=== PATIENT | female | born 1965 | race Caucasian/White ===

== ENCOUNTER 2024-08-01 08:43 | Outpatient (AMB) | payer MEDICAID, SELFPAY ==
--- NOTE | 2024-08-01 09:05 | A.OFFVIS_ITS ---
Intake Visit Reasons: hematuria/HX Kidney Stones Intake Note: Patient is present for HEMATURIA/HX KIDNEY STONES Urology Medication:NONE Antibiotic Allergy:NONE Blood Thinner:NONE TODAY'S PVR:0ML'S Textbook Associate Required: No Allergies No Known Allergies Allergy (Verified 08/01/24 09:08) HPI Comments Details: Janna is a very pleasant female. She is a patient of Dr. Quiñones. She seen for the following urologic conditions - nephrolithiasis Nephrolithiasis Prior stone procedures in 1992 and 2011 Underwent ESWL with ineffectual breaking up of stone Has had recurrent blood with a single UTI Imaging reviewed today with 12 mm stone within right renal pelvis Discussed options for therapy Recommend ureteroscopy with laser lithotripsy and stent placement [facility] Medical History (Updated 08/01/24 @ 09:38 by John Edwards MD) Back pain Retinal tear of left eye Recurrent nephrolithiasis Hypothyroid Colon polyp History of kidney stones Hematuria Surgical History (Updated 07/29/24 @ 13:59 by MEGHAN Negrete) History of knee surgery History of eye surgery History of back surgery History of lithotripsy Review of Systems Const Denies chills and Denies fever(s) Card Reports no additional complaints and Denies syncope Resp Denies cough GI Denies abdominal pain and Denies heartburn Reports as per HPI and Denies change in libido Neuro Denies syncope Psych Denies change in libido Endo Denies change in libido Physical Exam Const General: cooperative, healthy appearing, comfortable and no acute distress Orientation/consciousness: patient oriented x3 HEENT Face and sinus: Yes normal facial exam Mouth: moist mucous membranes Neck Neck: Yes normal visual inspection, Yes full ROM and Yes trachea midline Chest Chest palpation & inspection: normal inspection of the chest Resp Effort & Inspection: normal respiratory effort, able to speak in complete sentences and no respiratory distress GI Inspection: Yes normal to inspection Back/Spine/Pelvis Cervical Spine: normal cervical lordosis Thoracic/Lumbar Spine: thoracic and lumbar spine normal to inspection Skin General skin exam: no rashes or lesions noted Neuro General: patient oriented x3, gait normal, tone normal and moves all extremities Extrem General: Yes normal to inspection and Yes capillary refill normal Office Procedures Post Void Residual Post Residual Void Post Void Residual (PVR): 0 13375-[id number] Void Residual by ultrasound Assessment & Plan Assessment & Plan (1) Recurrent nephrolithiasis: Code(s): N20.0 - Calculus of kidney Category: Medical Plan Ureteroscopy We discussed the nature of the decision and reasonable alternatives for performing ureteroscopy. Options such as medical therapy were discussed. Interventions include chemical dissolution, ESWL, ureteroscopy with laser lithotripsy and stent placement, PCNL. The relative uncertainties and benefits related to each alternate procedure were adequately discussed. General surgical risks including, but not limited to - pain, bleeding, infection, myocardial infarction, pulmonary embolus, deep vein thrombosis and cerebrovascular accident which may result in further hospita lization were discussed. Full disclosure of the procedure as well as all major risks, benefits and complications were discussed including but not limited to damage to the urethra, bladder and kidney infection, damage to the ureter, stent migration or malposition, scarring to the renal pelvis, remnant stone fragments, subsequent stone passage with need for secondary procedures. The overall secondary procedure rate is approximately 10-15%. The overall clearance rate is approximately 90-95%. Success of the procedure in the short-term does not necessarily guarantee that long-term success will be maintained. Suitable follow up will need to be maintained. The patient showed understanding of discussion and wishes to proceed with - cystoscopy, retrograde, ureteroscopy, possible lithotripsy/stone basketing and stent on the right side Orders: Orders AMB Urinalysis Automated Today Z13.9 - Encounter for screening, unspecified Patient Instructions: Imaging studies, laboratory and physical exam results were discussed and re viewed in detail. No major barriers to patient understanding were identified. An opportunity to ask questions regarding the treatment plan was provided. All questions were answered. The patient expressed understanding and agreement with the above treatment plan. The patient is aware they should contact our office by phone for worsening of their current condition or the appearance of new urologic symptoms. Compliance is encouraged with any medications and followup testing that is ordered. It is a privilege to participate in the urologic care of your patient. If you have any questions or concerns regarding treatment for the above conditions, or other urologic issues, please do not hesitate to contact me. The office telephone contact is [phone]. This note is constructed using voice recognition software. While every effort has been made to ensure accuracy financial administrative assistant errors may have been included. Yours sincerely, Dr John Edwards MD, [facility] - Urology Providers of Expert, Compassionate Care for the Genitourinary System Coding Level of Care Code New Pt Level 4 (04704) Diagnoses Recurrent nephrolithiasis N20.0 CPT Codes Post Residual Void - PVR CPT Code: 51372-[id number] Void Residual by ultrasound ([id number])
== END 2024-08-01 09:34 | disposition home or self-care (01) ==
PROVIDERS: PCP Internal Medicine; Visit Provider Urology
DX: Z13.9 Encounter for screening, unspecified (principal); N20.0 Calculus of kidney
CPT/HCPCS: 99204

== ENCOUNTER → 2024-08-01 08:43 | Outpatient (BNVA) | payer MEDICAID, SELFPAY | PROVIDERS: PCP Internal Medicine; Visit Provider Urology | DX: N20.0 Calculus of kidney (principal) | CPT/HCPCS: 51798; 81003; 99202 ==

== ENCOUNTER 2024-09-09 10:55 | Day surgery (SDC) | payer MEDICAID, SELFPAY ==
[2024-09-05 13:33] VITALS: BMI 26.0
--- NOTE | 2024-09-05 13:51 | P.CONAN_ITS ---
Documented by User: Rubina Richardson NP 09/05/24 13:53 HPI - Anesthesia Eval Consult details Narrative: 59yo F for Cystoscopy, Ureteroroscopy, Retro, Laser,with stent placement PMFSH Active Problems Active Problems: All Active Problems Recurrent nephrolithiasis (Acute) Past Medical History Medical History Back pain Retinal tear of left eye Recurrent nephrolithiasis Hypothyroid Colon polyp History of kidney stones Hematuria Surgical History Surgical History History of knee surgery History of eye surgery History of back surgery History of lithotripsy Social History Social History (Updated 09/05/24 @ 13:34 by Alivia Campbell RN) Are you a primary healthcare business analyst to a significant other at home: No Do you presently have visiting nurse or other home services: No Patient Tobacco Use Status: Never used Tobacco Use of substances other than those prescribed or required for medical reasons: No Have you been hit, kicked, punched, or otherwise hurt by someone within the past year? If so, by whom?: No Are you DNR?: No Advance Directives: No Advance Directives Information Provided: Yes Recently lost weight without trying: No Nutrition Risks: No Nutritional Risk Meds Allergies Allergy/AdvReac Type Severity Reaction Status Date / Time No Known Allergies Allergy Verified 09/09/24 10:59 Home Medications ?Medication ?Instructions ?Recorded ?Confirmed ?Last Taken ?Type levothyroxine 75 mcg tablet 75 mcg PO DAILY 07/29/24 09/05/24 Unknown History Exam Height,Weight and Vital Signs: Height 5 ft 5 in Weight 70.76 kg Assessment and Plan Assessment Anesthesia Assessment: Chart Reviewed Documented by User: Tamra Dos Santos MD 09/09/24 12:59 PMFSH Past Medical History Medical History Back pain Retinal tear of left eye Recurrent nephrolithiasis Hypothyroid Colon polyp History of kidney stones Hematuria Family History Family history of problems with anesthesia: No Surgical History Surgical History History of knee surgery History of eye surgery History of back surgery History of lithotripsy History of Problems with Anesthesia: No Social History Social History (Updated 09/05/24 @ 13:34 by Alivia Campbell RN) Are you a primary healthcare business analyst to a significant other at home: No Do you presently have visiting nurse or other home services: No Patient Tobacco Use Status: Never used Tobacco Use of substances other than those prescribed or required for medical reasons: No Have you been hit, kicked, punched, or otherwise hurt by someone within the past year? If so, by whom?: No Are you DNR?: No Advance Directives: No Advance Directives Information Provided: Yes Recently lost weight without trying: No Nutrition Risks: No Nutritional Risk Meds Allergies Allergy/AdvReac Type Severity Reaction Status Date / Time No Known Allergies Allergy Verified 09/09/24 10:59 Home Medications ?Medication ?Instructions ?Recorded ?Confirmed ?Last Taken ?Type levothyroxine 75 mcg tablet 75 mcg PO DAILY 07/29/24 09/05/24 Unknown History Exam Airway Mallampati Class: II (missing one) TM Dist: >3cm Neck ROM: Full Heart: rrr Lungs: cta Assessment and Plan Assessment Anesthesia Assessment: Anesthesia Plan Discussed Final Anesthetic Review Family History of Problems with Anesthesia: No History of Problems with Anesthesia: No NPO: No ASA Class: II Final Preanesthetic Review: No Changes in Pt Med Stat, Meds/Allgs Chart Reviewed and Consent Obtained/Reviewed Patient Risk: Low Procedure Risk: Low Anesthetic Plan Anesthetic Plan: GA Disposition: Standard PACU
[2024-09-09 10:59] VITALS: BMI 25.3
[2024-09-09] MEDS: Lactated Ringers 1,000 ML 100 ML IVCONT (11:11)
[2024-09-09 11:23] VITALS: BP 134/80; PULSE 85; RESP 18; TEMP 36.7; O2SAT 99
--- NOTE | 2024-09-09 13:16 | MHC.SHP ---
Pre-Procedural Eval Section A - 24 Hr Update-Section A only Date of Service: 09/09/24 The patient is an INPATIENT: No Changes since office visit: No Cold of Flu in the past 2 weeks, No New Medical Problems, No Changes in Medication and No Patient answered all questions The patient has been examined within 24 hours of the surgical procedure. The History & Physical has been completed within 30 days and I have reviewed it.: Yes Section B - Complete if H&P > 30 days Chief Complaint: Calculus of kidney Details of Present Illness: right renal stone Relevant Family History (Specify if Yes): No Relevant Social History: None Present Medications: see Short Stay Collaborative assessment Medical History: No relevant PMH History of Previous Operations: No relevant previous surgery Allergies: Allergies Allergy/AdvReac Type Severity Reaction Status Date / Time No Known Allergies Allergy Verified 09/09/24 10:59 Review of Systems Sugical H&P ROS: Negative: Constitution, Cardiovascular, Respiratory, Neurological, Psychiatric, Hem-Onc, Allergic/Immunologic, Gastrointestinal, Genitourinary, Musculoskeletal, Integumentary, Endocrine and Eyes/Ears/Nose/Throat Exam Surgical H&P Exam: Normal: HEENT, Normal: Heart, Normal: Lungs, Normal: Extremities, Normal: Abdomen, Normal: Skin and Normal: Neurological Plan Diagnosis/Plan: Unchanged (right ureteroscopy with laser lithotripsy) I have reviewed the history and physical and performed a pertinent physical examination on my patient. No changes have occurred unless specified. Time Spent With Patient Time: Total time managing care of this patient today ____ minutes.
[2024-09-09 14:25] VITALS: BP 117/61; PULSE 87; RESP 16; TEMP 36.1; O2SAT 100
[2024-09-09 14:30] VITALS: BP 123/65; PULSE 73; RESP 16; O2SAT 99
[2024-09-09 14:35] VITALS: BP 126/62; PULSE 75; RESP 16; O2SAT 99
[2024-09-09 14:40] VITALS: BP 116/63; PULSE 85; RESP 18; O2SAT 100
[2024-09-09 14:55] VITALS: BP 124/61; PULSE 76; RESP 18; TEMP 36.2; O2SAT 100
--- NOTE | 2024-09-09 14:56 | P.OP_ITS ---
Operative Note Operative Note Date of Service: 09/09/24 Narrative: PreOperative Diagnosis: Right renal stone Post Operative Diagnosis: 1 - right renal stone 2 - multifocal superficial bladder cancer Procedure: - cystoscopy, right retrograde - right dilatation of ureteric orifice under fluoroscopy - right ureteroscopy, laser lithotripsy, stone basketing - right stent placement - TURBT multifocal superficial bladder cancer (large) Surgeon: Dr John Edwards Anesthesia: General Indications for procedure: 12 mm right renal stone on CT imaging. To prior procedures a number of years ago ESWL. Procedure: After informed consent was verified patient was brought to the operating placed in supine position. Anesthesia was administered per protocol. Patient was placed in modified dorsal lithotomy position and prepped and draped in a sterile fashion. Safety pause time-out and side of surgery confirmed. Antibiotics confirmed. A 22 Montenegrin cystoscope was inserted per urethra. The urethra and bladder were normal in their entirety. Both ureteric orifices were in normal position. There was a medium-sized superficial bladder cancer sitting adjacent to the right ureteric orifice. There were at least 2 satellite lesions in the near vicinity. There was a 3rd satellite lesion on the anterior aspect of the bladder dome. Satellite lesions were proximally 1 cm in diameter. Primary lesion was approximately 4 cm in greatest diameter with a 1 cm base. The right ureteric orifice was cannulated and a retrograde examination was performed. No filling defects seen within kidney. A Sensor guidewire was placed up to the level of the renal pelvis under fluoroscopy. The rigid cystoscope was removed and the inner cannula of ureteric access sheath was used under fluoroscopy to dilate the ureteric orifice. The ureteric access sheath was placed and the inner cannula with access wire removed. The digital flexible ureteral scope was placed. Stone was encountered in an mid pole calyx. Using a small 272 nm holmium laser fiber the stone was broken into small pieces. Using a 1.9 Montenegrin ZeroTip basket stone fragments were removed. At the completion of the stone procedure a Sensor wire was placed back into the renal pelvis. A 6 Mont[place]grin by 24 cm double-J stent was placed into the renal pelvis and bladder under a combination of fluoroscopy and direct visualization. The symphisis pubis was used as a radiographic marker to release the stent and good coil was seen within the bladder confirming position. Proximal positioning of the stent was confirmed using fluoroscopy. Attention was then directed to the multiple bladder tumors. A 26 Montenegrin continuous flow resectoscope was inserted per urethra. The visual obturator was used in order to minimize potential for urethral damage. The satellite lesion at the posterior wall was removed 1st. This was followed by another satellite lesion that was located proximally 1 cm distal from the ureteric orifice opening. The primary tumor was located approximately 2 cm proximal to the right ureteric orifice. This was resected in a 1 cm rim was fulgurated. Proximally 4 cm in diameter at widest point. This narrowed to a base proximally 1.5 cm in diameter. A 3rd satellite lesion was found during cystoscopy on the anterior bladder wall. This is a proximally 2 cm in diameter. Narrow band imaging was used and no other areas of suspicion were seen. The bladder was emptied and specimen was obtained. At the completion of the procedure the bladder was irrigated. The cystoscope was removed. The bladder was emptied. The patient tolerated the procedure well and was extubated in the operating room, and transferred in stable condition to the recovery area. Pathology: 1. Right renal stone fragments 2. TURBT specimen superficial bladder cancer Drains: Right renal stent
[2024-09-18 00:24] LABS: Stone Source RIGHT RENAL STONE
== END 2024-09-09 15:19 | disposition home or self-care (01) ==
PROVIDERS: PCP Internal Medicine; Visit Provider Urology
PROC: (CPT 52356; principal; 2024-09-09 14:00)
DX: N20.0 Calculus of kidney (principal); Z87.442 Personal history of urinary calculi; R31.9 Hematuria, unspecified; C67.9 Malignant neoplasm of bladder, unspecified; M54.9 Dorsalgia, unspecified; E03.9 Hypothyroidism, unspecified; Z79.1 Long term (current) use of non-steroidal anti-inflammatories (NSAID); Z79.899 Other long term (current) drug therapy; Z98.890 Other specified postprocedural states
CPT/HCPCS: 52356; 52235; 82365; 88300; 88307; C1758; C1769; C2617; J0131; J1100; J1956; J2003; J2250; J2405; J2704; J3010; Q9967

== ENCOUNTER → 2024-09-09 10:55 | Outpatient (BNV) | payer MEDICAID, SELFPAY | PROVIDERS: PCP Internal Medicine; Visit Provider Urology | DX: C67.8 Malignant neoplasm of overlapping sites of bladder (principal); N20.0 Calculus of kidney | CPT/HCPCS: 52240; 52356; 74420 ==

== ENCOUNTER 2024-09-23 09:48 | Outpatient (AMB) | payer MEDICAID, SELFPAY ==
--- NOTE | 2024-09-23 10:01 | A.OFFVIS_ITS ---
Intake Visit Reasons: stent removal Intake Note: Patient presents today for Cystoscopy/stent removal Urology Medication: none Antibiotic Allergy:none Blood Thinner:none * URO- G Disposable Cystoscope Lot: [id number] Exp: 01/24/27 Floorworker Lasting Required: No Accompanied by: Unknown Allergies No Known Allergies Allergy (Verified 09/23/24 22:21) Medication List - Last Reconciled 09/23/24 by ANSON Jones levothyroxine 75 mcg PO DAILY HPI Comments Details: Janna is a very pleasant 59-year-old female patient of Dr. Quiñones was accompanied by her friend at today's office visit. She has a past medical history of back pain, retinal tear of the left eye, recurrent nephrolithiasis, and hypothyroidism. She presents to the office today for a cystoscopy with right-sided ureteral stent removal. Of note, patient underwent cystoscopy, right retrograde, right dilatation of ureteric orifice under fluoroscopy, right ureteroscopy, laser lithotripsy, stone basketing, and right-sided ureteral stent placement as well as a TURBT multifocal superficial bladder cancer (large) with Dr. Edwards 09/09/24. In office cystoscopy with right ureteral stent removal was performed. Patient tolerated procedure well. We discussed at length pathology findings that noted low-grade papillary urethral carcinoma, noninvasive. Focal muscle bundle suggestive of but not definitive of muscularis propria. We also discussed stone composition/analysis calcium oxalate dehydrate 25%, calcium oxalate monohydrate 50%, and carbonate apatite 25%. I have discussed plan of care with Dr. Edwards as well as with the patient to include repeat cysto TURBT within the next 4-[address] with contrast for further assessment evaluation as patient with previous CT 07/11 however this was without contrast to assess nephrolithiasis. She denies any previous history of nicotine dependence however does report a previous history of workplace chemical exposure. She discusses her longstanding history of nephrolithiasis in the past requiring two prior ESWL many years ago. She does report noting episodes of urinary urgency and frequency with stent in place however she denies having had any previous issues with her urination. In office urinalysis results reviewed with the patient today. All questions were answered. She otherwise offers no other issues or concerns at this time. [facility] Medical History Back pain Retinal tear of left eye Recurrent nephrolithiasis Hypothyroid Colon polyp History of kidney stones Hematuria Surgical History History of knee surgery History of eye surgery History of back surgery History of lithotripsy Social History Are you a primary day care attendant to a significant other at home: No Do you presently have visiting nurse or other home services: No Patient Tobacco Use Status: Never used Tobacco Review of Systems Const All systems reviewed & are unremarkable except as noted in HPI and below Physical Exam Const General: cooperative, comfortable, no acute distress, well developed, alert and awake Orientation/consciousness: patient oriented x3 HEENT Head: Yes normal to inspection, Yes normocephalic and Yes atraumatic Ears: hearing grossly normal bilaterally Eyes General: appearance normal, both eyes and all related structures Neck Neck: Yes normal visual inspection and Yes trachea midline Chest Chest palpation & inspection: normal inspection of the chest Resp Effort & Inspection: normal respiratory effort and able to speak in complete sentences Cardio Rate: regular rate GI Inspection: Yes normal to inspection General: Yes no CVA tenderness External Female Exam: normal external appearance Speculum Exam - Vagina: normal appearance of the vagina Back/Spine/Pelvis Back: no CVA tenderness Skin General skin exam: no rashes or lesions noted Neuro General: patient oriented x3 Extrem General: Yes normal to inspection Psych Appearance: grossly normal and well kempt Mental Status: mental status grossly normal Speech and movement: Normal speech and movement present and Clear speech present Affect: normal affect Attitude: cooperative Thought process: Normal thought process present Thought content: Normal thought content present Insight: Fair insight present (Psych) Judgement: Fair judgement present (Psych) Office Procedures Cystoscopy Consent Discussed risk and benefit or proposed procedure with the patient. Information consent for procedure given to the patient. Discussed technical aspects, risks, benefits and alternatives in full. Addressed all of the patient's questions and concerns regarding the procedure. The patient demonstrated knowledge and understanding. They wish to proceed with this procedure. Preparation The patient was prepped in the usual manner. A cnc set up operator was present and in the room. Genitalia was prepped with betadine solution in a sterile manner. Lidocaine Jelly 2% was placed into the urethra and 16Fr flexible cystoscope was inserted into the meatus after adequate lubrication. Procedure A well lubricated 16 Bermudian cystoscope was placed No abnormality noted of urethra during placement Indwelling stent seen within bladder emerging from right ureteric orifices The stent was grasped with a 3 prong grasper and removed without difficulty Patient tolerated procedure well. [id number] with stent removal DISPOSABLE SCOPE URO-G FLEXIBLE SCOPE Procedure code (CPT) selection complete Office Meds lidocaine HCl 2 % mucosal jelly in applicator Performing Provider: ANSON Jones [facility] Administered by: ANSON Jones on 09/23/24 22:31 Dose Route Admin Location Dispensed Lot Number Expiration Date [facility] Chef Manager 10 mL intra-urethral 10 mL Comments: 100mg of macrobid PO times 1 given 500 mg of naproxen p.o. x1 given Results AMB Urinalysis, Automated UA Leukoctes 125 Jeffrey/uL Last Edit by Kvng Pacheco on 09/23/24 11:46 UA Nitrite Last Edit by Kvng Pacheco on 09/23/24 11:46 UA Urobilinogen 0.2 mg/dL Last Edit by Kvng Pacheco on 09/23/24 11:46 UA Protein 300 mg/dL Last Edit by Kvng Pacheco on 09/23/24 11:46 UA pH 6.0 Last Edit by Kvng Pacheco on 09/23/24 11:46 UA Blood 200 Terrance/uL Last Edit by Kvng Pacheco on 09/23/24 11:46 UA Specific [place]ham 1.030 Last Edit by Kvng Pacheco on 09/23/24 11:46 UA Ketone Last Edit by Kvng Pacheco on 09/23/24 11:46 UA Bilirubin 1 mg/dL Last Edit by Kvng Pacheco on 09/23/24 11:46 UA Glucose 0 mg/dL Last Edit by Kvng Pacheco on 09/23/24 11:46 Results Reviewed Results Reviewed: Laboratory Last Values Urine pH (Auto) 6.0 09/23/24 11:45 Specific [place]ham (Auto) 1.030 09/23/24 11:45 Urine Protein (Auto) 300 mg/dL 09/23/24 11:45 Glucose (UA)(Auto) 0 mg/dL 09/23/24 11:45 Urine Blood (Auto) 200 Terrance/uL 09/23/24 11:45 Urine Bilirubin (Auto) 1 mg/dL 09/23/24 11:45 Urine Urobilinogen (Auto) 0.2 mg/dL 09/23/24 11:45 Leukocyte Esterase (Auto) 125 Jeffrey/uL 09/23/24 11:45 Assessment & Plan Assessment & Plan (1) Bladder cancer: Code(s): C67.9 - Malignant neoplasm of bladder, unspecified Category: Medical (2) Recurrent nephrolithiasis: Code(s): N20.0 - Calculus of kidney Category: Medical Plan: Risks, benefits and alternatives to therapy were discussed. These include but are not limited to infection, bleeding, damage to local organs and tissues, need for further interventions. ? Anesthetic risks regarding cardiac arrhythmia, blood clots, and potential mortality were discussed. The patient understands the typical recovery time and the outpatient nature of the procedure. After consideration of these risks the patient gives full informed consent and they wish to move ahead with the procedure. Plan In office urinalysis results reviewed with the patient today; as noted above. In office cystoscopy with right ureteral stent removal was performed patient tolerated procedure well. Recent pathology results as well as stone composition results reviewed with the patient today; as noted above. We discussed obtaining CT for further assessment evaluation. BUN and creatinine ordered for imaging. We discussed repeat cysto TURBT with Dr. Edwards in the next 4-6 weeks. Discussed, educated, and stressed the importance of adequate hydration relation to nephrolithiasis as well as overall health and well-being. All questions were answered. Follow-up with Dr. Edwards; or sooner with any issues, concerns, and or questions. Orders: Orders CT abdomen pelvis wo/w IV con 09/23/24 C67.9 - Malignant neoplasm of bladder, unspecified Creatinine 09/23/24 C67.9 - Malignant neoplasm of bladder, unspecified Blood Urea Nitrogen 09/23/24 C67.9 - Malignant neoplasm of bladder, unspecified AMB Urinalysis Automated 09/23/24 Z13.9 - Encounter for screening, unspecified AMB Cystoscopy 09/23/24 C67.9 - Malignant neoplasm of bladder, unspecified, N20.0 - Calculus of kidney Medications: New lidocaine HCl 2% 10 mL intra-urethral ONCE 10 mL 0RF C67.9 - Malignant neoplasm of bladder, unspecified, N20.0 - Calculus of kidney Patient Instructions: The patient had an opportunity to ask questions regarding the treatment plan. All questions were answered. Physical exam, labs, and imaging were discussed and reviewed in detail. As well as risks, benefits, and discussion of treatment choices. No major barriers to understanding were identified. The patient expressed understanding and agreement with the above treatment plan. The patient was made aware they should contact our office by phone for worsening of their current condition, the appearance of new symptoms, or with any questions or concerns. Compliance is encouraged with any medications and follow up testing that is ordered. It is a privilege to be allowed the opportunity to participate in? your urological care.? Again, if you have any questions or concerns If you have any questions or concerns please do not hesitate to contact me. The office is [phone]. This note is constructed using voice recognition software. While every effort has been made to ensure accuracy public welfare worker errors may have been included. Yours sincerely, ANSON Jones Coding Level of Care Code Est Pt Level 4 (65567) Complex EM visit Add On G2211 Diagnoses Bladder cancer C67.9 Recurrent nephrolithiasis N20.0 CPT Codes Cystoscopy - CPT: 67383-[id number] with stent removal ([id number]) Time Spent (min) 40
== END 2024-09-23 11:15 | disposition home or self-care (01) ==
PROVIDERS: PCP Internal Medicine; Visit Provider Nurse Practitioner Family
DX: C67.9 Malignant neoplasm of bladder, unspecified (principal); N20.0 Calculus of kidney
CPT/HCPCS: 52310; 99214; G2211

== ENCOUNTER 2024-10-21 13:00 | Day surgery (SDC) | payer MEDICAID, SELFPAY ==
[2024-10-17 10:32] VITALS: BMI 25.3
[2024-10-21 13:14] VITALS: BMI 24.6
[2024-10-21 13:16] VITALS: BP 107/66; PULSE 83; RESP 16; TEMP 36.8; O2SAT 96
--- NOTE | 2024-10-21 13:56 | P.CONAN_ITS ---
Documented by User: Lora Hunter MD 10/21/24 14:00 HPI - Anesthesia Eval Consult details Narrative: 59yo female patient for TURBT PMFSH Active Problems Active Problems: All Active Problems Bladder cancer (Acute) Recurrent nephrolithiasis (Acute) Past Medical History Medical History Back pain Retinal tear of left eye Recurrent nephrolithiasis Hypothyroid Colon polyp History of kidney stones Hematuria Family History Family history of problems with anesthesia: No Surgical History Surgical History Hx of cystoscopy History of knee surgery History of eye surgery History of back surgery History of lithotripsy History of Problems with Anesthesia: No Social History Social History Are you a primary care transition manager to a significant other at home: No Do you presently have visiting nurse or other home services: No Patient Tobacco Use Status: Never used Tobacco Use of substances other than those prescribed or required for medical reasons: Yes Substance Use Type Other:: CBD gummies for sleep, last used 10/20/24 Substance Use Frequency: Weekly Are you DNR?: No Advance Directives: No Advance Directives Information Provided: Yes Meds Allergies Allergy/AdvReac Type Severity Reaction Status Date / Time No Known Allergies Allergy Verified 10/21/24 13:11 Home Medications ?Medication ?Instructions ?Recorded ?Confirmed ?Last Taken ?Type levothyroxine 75 mcg tablet 75 mcg PO DAILY 07/29/24 10/17/24 10/21/24 History Exam Height,Weight and Vital Signs: Height 5 ft 5 in Weight 67.132 kg Last Vital Signs Temp 98.3 F 10/21/24 13:16 Pulse 83 10/21/24 13:16 Resp 16 10/21/24 13:16 BP 107/66 10/21/24 13:16 Pulse Ox 96 10/21/24 13:16 O2 Del Method Room Air 10/21/24 13:16 Assessment and Plan Final Anesthetic Review Family History of Problems with Anesthesia: No History of Problems with Anesthesia: No Documented by User: Tamra Dos Santos MD 10/21/24 14:12 PMFSH Past Medical History Medical History Back pain Retinal tear of left eye Recurrent nephrolithiasis Hypothyroid Colon polyp History of kidney stones Hematuria Surgical History Surgical History Hx of cystoscopy History of knee surgery History of eye surgery History of back surgery History of lithotripsy Social History Social History Are you a primary care transition manager to a significant other at home: No Do you presently have visiting nurse or other home services: No Patient Tobacco Use Status: Never used Tobacco Use of substances other than those prescribed or required for medical reasons: Yes Substance Use Type Other:: CBD gummies for sleep, last used 10/20/24 Substance Use Frequency: Weekly Are you DNR?: No Advance Directives: No Advance Directives Information Provided: Yes Meds Allergies Allergy/AdvReac Type Severity Reaction Status Date / Time No Known Allergies Allergy Verified 10/21/24 13:11 Home Medications ?Medication ?Instructions ?Recorded ?Confirmed ?Last Taken ?Type levothyroxine 75 mcg tablet 75 mcg PO DAILY 07/29/24 10/17/24 10/21/24 History Exam Airway Mallampati Class: II (missing one front tooth) TM Dist: >3cm Neck ROM: Full Heart: rrr Lungs: cta Assessment and Plan Assessment Anesthesia Assessment: Anesthesia Plan Discussed and Chart Reviewed Final Anesthetic Review NPO: Yes ASA Class: II Final Preanesthetic Review: No Changes in Pt Med Stat, Meds/Allgs Chart Reviewed and Consent Obtained/Reviewed Patient Risk: Low Procedure Risk: Low Anesthetic Plan Anesthetic Plan: GA Disposition: Standard PACU
--- OUTSIDE RECORDS SUMMARY | 2024-10-21 14:18 | XMS_ITS | Clinical Summary ---
Author Organization [facility] Address [address] [place] [address] Care Team Providers Care Java Technical Manager Name Role Phone Sofía Sandoval MD Primary Care Provider [phone] Sofía Sandoval MD Unavailable [phone] Immunizations Name Administration Dates Next Due Tdap 11/21/2007 Social History Tobacco Use Types Packs/Day Years Used Date Smoking Tobacco: Never Assessed Comments Unknown Sex and Gender Information Value Date Recorded Sex Assigned at Not on file Legal Sex Female 10:30 PM EDT Gender Identity Not on file Sexual Orientation Not on file Plan of Treatment Health Maintenance Due Date Last Done Comments Hepatitis C Screening 1964 Pap Smear 1980 Mammogram/Breast Imaging 2004 Pneumococcal 50+ years (1 of 1 - PCV) 02/21/2014 Zoster (Shingrix) (1 of 2) 02/21/2014 DTaP/Tdap/Td (2 - Td or Tdap) 11/20/2017 11/21/2007 COVID-19 Vaccine ( - 2023-2 5 season) 2024 Influenza (#1) 2024 RSV (1 - 1-dose 75+ series) 02/21/2039 HPV Vaccine Aged Out No longer eligi ble based on patient's age to complete this topic Hep A Aged Out No longer eligi ble based on patient's age to complete this topic Hep B Aged Out No longer eligi ble based on patient's age to complete this topic Hib Aged Out No longer eligi ble based on patient's age to complete this topic Meningococcal ACWY Aged Out No longer eligible based on patient's age to complete this topic Zoster (Zostavax) Discontinued Care Teams Java Technical Manager Relationship Specialty Start Date End Date Sofía Sandoval MD [address] [place] [address] PCP - General 04/24/23 Sofía Sandoval MD [address] [place] [id number] PCP - Backup PCP Family Medicine 10/18/23
--- NOTE | 2024-10-21 14:29 | P.HPSUR_ITS ---
Pre-Procedural Eval Section A - 24 Hr Update-Section A only Date of Service: 10/21/24 The patient is an INPATIENT: No Changes since office visit: No Cold of Flu in the past 2 weeks, No New Medical Problems, No Changes in Medication and No Patient answered all questions The patient has been examined within 24 hours of the surgical procedure. The History & Physical has been completed within 30 days and I have reviewed it.: Yes Section B - Complete if H&P > 30 days Chief Complaint: Malignant neoplasm of bladder, unspecified Details of Present Illness: Underwent prior stone procedure with TURBT. Was f ound to have multiple 1 cm superficial bladder cancer in bladder. Here for repeat TURBT after initial. We will be planning on post immunotherapy. Relevant Family History (Specify if Yes): No Relevant Social History: None Present Medications: see Short Stay Collaborative assessment Medical History: No relevant PMH History of Previous Operations: Relevant previous surgery/procedure and date(s) Allergies: Allergies Allergy/AdvReac Type Severity Reaction Status Date / Time No Known Allergies Allergy Verified 10/21/24 13:11 Review of Systems Sugical H&P ROS: Negative: Constitution, Cardiovascular, Respiratory, Neurological, Psychiatric, Hem-Onc, Allergic/Immunologic, Gastrointestinal, Genitourinary, Musculoskeletal, Integumentary, Endocrine and Eyes/E ars/Nose/Throat Exam Surgical H&P Exam: Normal: HEENT, Normal: Heart, Normal: Lungs, Normal: Extremities, Normal: Abdomen, Normal: Skin and Normal: Neurological Plan Diagnosis/Plan: Unchanged (TURBT redo) I have reviewed the history and physical and performed a pertinent physical examination on my patient. No changes have occurred unless specified. Time Spent With Patient Time: Total time managing care of this patient today ____ minutes.
[2024-10-21 15:11] VITALS: BP 101/58; PULSE 72; RESP 16; TEMP 36.8; O2SAT 98
[2024-10-21 15:16] VITALS: BP 101/59; PULSE 74; RESP 16; O2SAT 97
[2024-10-21 15:21] VITALS: BP 97/56; PULSE 73; RESP 14; O2SAT 98
[2024-10-21 15:26] VITALS: BP 100/61; PULSE 83; RESP 16; O2SAT 100
--- NOTE | 2024-10-21 15:27 | W.PM.OPN ---
Operative Note Operative Note Date of Service: 10/21/24 Narrative: PreOperative Diagnosis: bladder cancer Post Operative Diagnosis: bladder cancer - #1)Tumor size 2 cm, location Posterior Wall, #2) Tumor size 0.5cm, location right side wall Procedure: TURBT Surgeon: Dr John Edwards Anesthesia: general Indications for procedure: Had been seen with multiple bladder tumors at time of stone procedure. Here for 6 week post resection reassessment. Procedure: After informed consent was verified the patient was brought to the operating room and placed in a supine position. Anesthesia was administered per protocol. The patient was placed in a modified dorsal lithotomy position and prepped and draped in a sterile fashion. Safety pause time-out was performed. Antibiotics were confirmed. A 26 Slovenian continuous flow resectoscope was inserted per urethra. The visual obturator was used in order to minimize potential for urethral damage. 2 cm lesion seen on posterior wall. This was initial lesion to be resected and fulgurated. Fulguration performed at base of healing lesion on inferior aspect of posterior wall. Narrow band imaging light used. Bladder examined in its entirety. Small lesion seen on right upper sidewall which was fulgurated. At the completion of the procedure the bladder was irrigated. The cystoscope was removed. The patient tolerated the procedure well. They were extubated in the operating room and transferred in stable condition to the recovery area. Pathology: 2 cm tumor Drains: []
[2024-10-21 15:41] VITALS: BP 117/63; PULSE 76; RESP 18; TEMP 36.3; O2SAT 100
[2024-10-21] MEDS: Phenazopyridine HCL 100 MG TABLET PO (15:46)
== END 2024-10-21 16:10 | disposition home or self-care (01) ==
PROVIDERS: PCP Internal Medicine; Visit Provider Urology
PROC: 0TBB8ZZ Excision of Bladder, Via Natural or Artificial Opening Endoscopic (ICD-10-PCS; CPT 52234; principal; 2024-10-21 14:50)
DX: C67.9 Malignant neoplasm of bladder, unspecified (principal); C67.4 Malignant neoplasm of posterior wall of bladder; Z87.442 Personal history of urinary calculi; E03.9 Hypothyroidism, unspecified; Z79.899 Other long term (current) drug therapy; Z98.890 Other specified postprocedural states
CPT/HCPCS: 52234; J0690; J1100; J2003; J2250; J2371; J2405; J2704; J3010

== ENCOUNTER → 2024-10-21 13:00 | Outpatient (BNV) | payer MEDICAID, SELFPAY | PROVIDERS: PCP Internal Medicine; Visit Provider Urology | DX: C67.8 Malignant neoplasm of overlapping sites of bladder (principal) | CPT/HCPCS: 52235 ==

== ENCOUNTER 2024-11-02 10:12 | Outpatient (REF) | payer MEDICAID, SELFPAY ==
--- OUTSIDE RECORDS SUMMARY | 2024-11-02 10:14 | XMS_ITS | Clinical Summary ---
Author Organization [facility] Address [address] [place] [address] Care Team Providers Care Retail Merchandising Coordinator Name Role Phone Sofía Sandoval MD Primary Care Provider [phone] Sofía Sandoval MD Unavailable [phone] Immunizations Name Administration Dates Next Due Tdap [...] this topic Zoster (Zostavax) Discontinued Care Teams Retail Merchandising Coordinator Relationship Specialty Start Date End Date Sofía Sandoval MD [address] [place] [address] PCP - General 04/24/23 Sofía Sandoval MD [address] [place] [id number] PCP - Backup PCP Family Medicine 10/18/23
[2024-11-02 11:04] LABS: Blood Urea Nitrogen 14 mg/dL (9-16); Estimated Glomerular Filt Rate > 60
== END 2024-11-02 10:13 | disposition home or self-care (01) ==
LOC: HO.LAB 10:12
PROVIDERS: PCP Internal Medicine; Visit Provider Nurse Practitioner Family
DX: C67.9 Malignant neoplasm of bladder, unspecified (principal)
CPT/HCPCS: 36415; 82565; 84520

== ENCOUNTER 2024-11-08 15:10 | Outpatient (REF) | payer MEDICAID, SELFPAY ==
[2024-11-08 17:10] LABS: Urine Cytology See Pathology rpt
== END 2024-11-08 15:11 | disposition home or self-care (01) ==
LOC: HO.LNP 15:10
PROVIDERS: Visit Provider Urology
DX: C67.9 Malignant neoplasm of bladder, unspecified (principal); R30.0 Dysuria
CPT/HCPCS: 87086; 88112

== ENCOUNTER 2024-11-08 15:10 | Outpatient (AMB) | payer MEDICAID, SELFPAY ==
--- OUTSIDE RECORDS SUMMARY | 2024-11-08 15:16 | XMS_ITS | Clinical Summary ---
Author Organization [facility] Address [address] [place] [address] Care Team Providers Care It Service Continuity Supervisor Name Role Phone Sofía Sandoval MD Primary Care Provider [phone] Sofía Sandoval MD Unavailable [phone] Immunizations Name Administration Dates Next Due Tdap [...] this topic Zoster (Zostavax) Discontinued Care Teams It Service Continuity Supervisor Relationship Specialty Start Date End Date Sofía Sandoval MD [address] [place] [address] PCP - General 04/24/23 Sofía Sandoval MD [address] [place] [id number] PCP - Backup PCP Family Medicine 10/18/23
--- NOTE | 2024-11-08 15:19 | A.OFFVIS_ITS ---
Intake Visit Reasons: TURBT- follow up Intake Note: Pt presents to office for TURBT follow up Allergies No Known Allergies Allergy (Verified 11/08/24 15:21) HPI Comments Details: Janna is a very pleasant female. She is a patient of Dr. Quiñones. She seen for the following urologic conditions - nephrolithiasis - low-grade superficial bladder cancer Doing well postprocedure Question of UTI Will treat for 3 day Recommend 6 week induction mitomycin-C with cytarabine given multifocal nature of disease Would follow-up with office cystoscopy and three-month Low-grade superficial bladder cancer Incidental finding at time of ureteroscopy Procedures - 09/10 TURBT multifocal superficial low-grade T1 - 11/11 repeat TURBT with 2 solitary lesion seen under NBI Nephrolithiasis Prior stone procedures in 1992 and 2011 Underwent ESWL with ineffectual breaking up of stone Has had recurrent blood with a single UTI Intervention - 09/10 right ureteroscopy with ESWL Stone composition - 09/10 - calcium oxalate monohydrate 50%, dihydrate 25%, carbonate apatite 25% PFSH Medical History Back pain Retinal tear of left eye Recurrent nephrolithiasis Hypothyroid Colon polyp History of kidney stones Hematuria Surgical History Hx of cystoscopy History of knee surgery History of eye surgery History of back surgery History of lithotripsy Social History Are you a primary childcare administrator to a significant other at home: No Do you presently have visiting nurse or other home services: No Patient Tobacco Use Status: Never used Tobacco Review of Systems Const Denies chills and Denies fever(s) Card Reports no additional complaints and Denies syncope Resp Denies cough GI Denies abdominal pain and Denies heartburn Reports as per HPI and Denies change in libido Neuro Denies syncope Psych Denies change in libido Endo Denies change in libido Physical Exam Const General: cooperative, healthy appearing, comfortable and no acute distress Orientation/consciousness: patient oriented x3 HEENT Face and sinus: Yes normal facial exam Mouth: moist mucous membranes Neck Neck: Yes normal visual inspection, Yes full ROM and Yes trachea midline Chest Chest palpation & inspection: normal inspection of the chest Resp Effort & Inspection: normal respiratory effort, able to speak in complete sentences and no respiratory distress GI Inspection: Yes normal to inspection Back/Spine/Pelvis Cervical Spine: normal cervical lordosis Thoracic/Lumbar Spine: thoracic and lumbar spine normal to inspection Skin General skin exam: no rashes or lesions noted Neuro General: patient oriented x3, gait normal, tone normal and moves all extremities Extrem General: Yes normal to inspection and Yes capillary refill normal Results AMB Urinalysis, Automated UA Leukoctes 15 Jeffrey/uL Last Edit by Suzi Cody on 11/08/24 15:32 UA Nitrite Negative Last Edit by Suzi Cody on 11/08/24 15:32 UA Urobilinogen 0.2 mg/dL Last Edit by Suzi Cody on 11/08/24 15:32 UA Protein 0 mg/dL Last Edit by Suzi Cody on 11/08/24 15:32 UA pH 6.0 Last Edit by Suzi Cody on 11/08/24 15:32 UA Blood 80 Terrance/uL Last Edit by Suzi Cody on 11/08/24 15:32 UA Specific [place] 1.015 Last Edit by Suzi Cody on 11/08/24 15:32 UA Ketone Negative Last Edit by Suzi Cody on 11/08/24 15:32 UA Bilirubin 0 mg/dL Last Edit by Suzi Cody on 11/08/24 15:32 UA Glucose 0 mg/dL Last Edit by Suzi Cody on 11/08/24 15:32 Results Reviewed Results Reviewed: Laboratory Last Values Urine pH (Auto) 6.0 11/08/24 15:26 Specific [place] (Auto) 1.015 11/08/24 15:26 Urine Protein (Auto) 0 mg/dL 11/08/24 15:26 Glucose (UA)(Auto) 0 mg/dL 11/08/24 15:26 Urine Ketones (Auto) Negative 11/08/24 15:26 Urine Blood (Auto) 80 Terrance/uL 11/08/24 15:26 Urine Nitrite (Auto) Negative 11/08/24 15:26 Urine Bilirubin (Auto) 0 mg/dL 11/08/24 15:26 Urine Urobilinogen (Auto) 0.2 mg/dL 11/08/24 15:26 Leukocyte Esterase (Auto) 15 Jeffrey/uL 11/08/24 15:26 Assessment & Plan Assessment & Plan (1) Complicated urinary tract infection: Code(s): N39.0 - Urinary tract infection, site not specified Category: Medical (2) Bladder cancer: Comment: Multifocal low-grade T1 disease Code(s): C67.9 - Malignant neoplasm of bladder, unspecified Category: Medical Plan Bladder immunotherapy Bladder immuno/chemotherapy was discussed today. These medications are used to create an immune reaction against bladder cancer. The intention is to destroy any tumor cells left on the bladder surface. Since BCG and gemcitabine involved immunostimulation they are not indicated in situations where there is immune weakness. Medications are placed directly into the bladder. It should be held for one to 2 hours. The toilet should be disinfected with a cap full of household bleach prior to urination. Side effects from BCG and gemcitabine generally include mucosa-related changes such as urinary urgency and/or frequency, and hematuria BCG may also invoke an infection type response. An elevated temperature may be indicative of more serious issues and should be reported to the Dr. The intention with bladder immunotherapy is to reduce the frequency of bladder cancer recurrence by 50%. Availability of BCG is highly variable. There is a single manufacture who has had difficulty with quality control industrial engineer since 2016. Multiple protocols are available - mitomycin-C for alkalinization - 40mg/200mg in 40cc NSal - EAU 2020: A Randomized Clinical Trial of Intravesical Instillation of Mitomycin-C and Combination of Mitomycin-C and Cytarabine (Willa-C) in Non-Muscle Invasive Bladder Cancer - Wesley Zamorano - Combination Gemcitabine/Docetaxel - 1gm/40mg in 100cc NSal 60 min (Intravesical gemcitabine and docetaxel in the treatment of BCG-na?ve non?muscle invasive urothelial carcinoma of the bladder: Updates from a phase 2 trial. Crossref DOI link:? https://doi.org/10.1200/JCO.2023.41.6_suppl.507 ) Will undergo - mitomycin-C with cytarabine 6 week induction Orders: Orders Urine Culture Today R30.0 - Dysuria AMB Urinalysis Automated Today C67.9 - Malignant neoplasm of bladder, unspecified Urine Cytology Today C67.9 - Malignant neoplasm of bladder, unspecified Medications: New sulfamethoxazole-trimethoprim 800-160 mg (Bactrim DS) 1 tab PO BID 5 days 10 tabs 0RF N39.0 - Urinary tract infection, site not specified Patient Instructions: This note is constructed using voice recognition software. While every effort has been made to ensure accuracy service restorer emergency errors may have been included. Imaging studies, laboratory and physical exam results were discussed and reviewed in detail. No major barriers to patient understanding were identified. An opportunity to ask questions regarding the treatment plan was provided. All questions were answered. The patient expressed understanding and agreement with the above treatment plan. The patient is aware they should contact our office by phone for worsening of their current condition or the appearance of new urologic symptoms. Compliance is encouraged with any medications and followup testing that is ordered. It is a privilege to participate in the urologic care of your patient. If you have any questions or concerns regarding treatment for the above conditions, or other urologic issues, please do not hesitate to contact me. The office telephone contact is [phone]. Sincerely, Dr John Edwards MD, [facility] - Urology Compassionate Specialist Care for the Genitourinary System Coding Level of Care Code Est Pt Level 4 (98703) Complex EM visit Add On G2211 Diagnoses Complicated urinary tract infection N39.0 Bladder cancer C67.9
== END 2024-11-08 16:01 | disposition home or self-care (01) ==
PROVIDERS: PCP Internal Medicine; Visit Provider Urology
DX: N39.0 Urinary tract infection, site not specified (principal); C67.9 Malignant neoplasm of bladder, unspecified
CPT/HCPCS: 99214; G2211

== ENCOUNTER 2024-11-08 15:10 | Outpatient (REF) | payer MEDICAID, SELFPAY ==
--- OUTSIDE RECORDS SUMMARY | 2024-11-08 15:58 | XMS_ITS | Clinical Summary ---
Author Organization [facility] Address [address] [place] [address] Care Team Providers Care Geochemical Manager Name Role Phone Sofía Sandoval MD Primary Care Provider [phone] Sofía Sandoval MD Unavailable [phone] Immunizations Name Administration Dates Next Due Tdap [...] this topic Zoster (Zostavax) Discontinued Care Teams Geochemical Manager Relationship Specialty Start Date End Date Sofía Sandoval MD [address] [place] [address] PCP - General 04/24/23 Sofía Sandoval MD [address] [place] [id number] PCP - Backup PCP Family Medicine 10/18/23
== END 2024-11-08 15:11 | disposition home or self-care (01) ==
LOC: HO.LAB 15:10
PROVIDERS: PCP Internal Medicine; Visit Provider Urology
DX: N39.0 Urinary tract infection, site not specified (principal); C67.9 Malignant neoplasm of bladder, unspecified
CPT/HCPCS: 81003; 99212

== ENCOUNTER 2024-11-15 08:17 | Outpatient (REF) | payer MEDICAID, SELFPAY ==
--- NOTE | ~2024-11-15 | CT_ITS ---
EXAMINATION: CT ABDOMEN AND PELVIS WITHOUT AND WITH CONTRAST CLINICAL INFORMATION: Malignancy of the bladder, unspecified. COMPARISON: None available. TECHNIQUE: Multidetector volumetric imaging was performed of the abdomen and pelvis before and after the IV administration of 85 mL of Omnipaque 300 intravenous contrast. Sagittal and coronal reformatted images were obtained on the technologist's workstation. This CT examination was performed using dose optimization techniques as appropriate, variously including the following: *Automated exposure control *Adjustment of mA and/or kV according to patient size (this includes techniques or standardized protocols for targeted exams where dose is matched to indication/reason for exam; i.e. extremities or head) *Use of iterative reconstruction technique. DLP: 810 mGy centimeter. FINDINGS: LIVER, GALLBLADDER, AND BILIARY TREE: Liver measures 16 cm. There is a 3 mm hypodensity in the periphery of the right hepatic lobe too small to be fully characterized. Portal veins, hepatic veins and intrahepatic portion of the IVC are patent. No intrahepatic biliary ductal dilatation. No pericholecystic fluid collection or gallbladder wall thickening. Common bile duct measures 3 mm. PANCREAS: No focal mass. No peripancreatic fluid collection. No main pancreatic ductal dilatation. SPLEEN: 9 cm. No focal lesion. Subcentimeter cyst. ADRENAL GLANDS: No nodular lesions. KIDNEYS AND URETERS: Right kidney: There is a 6 mm calculus in the lower pole pelvicalyceal system. No hydronephrosis. No gross renal mass. Normal enhancement of the renal parenchyma and excretion of the IV contrast into the collecting system. Left kidney: No hydronephrosis. No nephrolithiasis. No renal mass. Normal enhancement pattern and normal urinary excretion into the collecting system. BLADDER: Fluid-filled with jets bilaterally no gross wall thickening. GASTROINTESTINAL TRACT: Diverticula in the left hemicolon. Abundant stool. No intestinal obstruction pattern. No pneumatosis intestinalis. Appendix is normal and retrocecal. No ascites. No pneumoperitoneum. No peripheral enhancing fluid collection in the peritoneal cavity. ABDOMINAL WALL: No gross umbilical hernia. LYMPH NODES: There are multiple prominent less than 11 mm lymph nodes in the retroperitoneum/periaortic and periiliac. VASCULAR: No aneurysm or dissection, abdominal aorta. PELVIC VISCERA: Probable uterine fibroid. No lesions in the adnexa. OSSEOUS STRUCTURES: Multilevel thoracolumbar spondylosis. Grade 1 anterolisthesis L4-5 on a degenerative basis resulting in central spinal canal and bilateral neuroforamina stenosis. There is facet joint hypertrophy at L5-S1 and decreased intervertebral disc height with vacuum phenomenon at L5-S1. There is a grade 1 retrolisthesis L5-S1. No lytic or blastic lesions. CT/CT abdomen pelvis wo/w IV con IMPRESSION: Prominent less than 11 mm lymph nodes in the retroperitoneum/periaortic and periiliac. No discrete mass in the urinary bladder. 6 mm nonobstructing nephrolithiasis, right kidney. Diverticular disease. Probable uterine fibroid. Lumbar spondylosis resulting in grade 1 anterolisthesis L4-5 and central spinal canal and bilateral neuroforamina stenosis. Grade 1 retrolisthesis L5-S1. Probable subcentimeter cyst, right hepatic lobe. Fleischner guidelines were followed. Electronically signed by: Zac Mendes MD 11/15/2024 09:54 AM [facility]
--- OUTSIDE RECORDS SUMMARY | 2024-11-15 08:29 | XMS_ITS | Clinical Summary ---
Author Organization [facility] Address [address] [place] [address] Care Team Providers Care Putty Mixer Name Role Phone Sofía Sandoval MD Primary Care Provider [phone] Sofía Sandoval MD Unavailable [phone] Immunizations Name Administration Dates Next Due Tdap [...] this topic Zoster (Zostavax) Discontinued Care Teams Putty Mixer Relationship Specialty Start Date End Date Sofía Sandoval MD [address] [place] [address] PCP - General 04/24/23 Sofía Sandoval MD [address] [place] [id number] PCP - Backup PCP Family Medicine 10/18/23
[2024-11-15] MEDS: iohexoL 350 MG/ML 75 ML INFUS..BTL 85 ML IV (09:12)
== END 2024-11-15 08:18 | disposition home or self-care (01) ==
LOC: HO.CT 08:17
PROVIDERS: PCP Internal Medicine; Visit Provider Nurse Practitioner Family
DX: C67.9 Malignant neoplasm of bladder, unspecified (principal)
CPT/HCPCS: 74178; Q9967

== ENCOUNTER → 2024-11-15 08:20 | Outpatient (BNV) | payer MEDICAID, SELFPAY | PROVIDERS: PCP Internal Medicine; Visit Provider Radiology Diagnostic Radiology | DX: N20.0 Calculus of kidney (principal); K57.90 Diverticulosis of intestine, part unspecified, without perforation or abscess without bleeding; M47.816 Spondylosis without myelopathy or radiculopathy, lumbar region | CPT/HCPCS: 74178 ==

== ENCOUNTER 2024-11-26 15:12 | Outpatient (AMB) | payer MEDICAID, SELFPAY ==
--- NOTE | 2024-11-26 15:13 | A.OFFVIS_ITS ---
Intake Visit Reasons: CT results(set) Intake Note: Patient presents today via telehealth-call for CT results Urology Medication: none Antibiotic Allergy:none Blood Thinner:none Graphite Grinder Required: No Accompanied by: Unknown Allergies No Known Allergies Allergy (Verified 11/26/24 15:23) Medication List - Last Reconciled 11/26/24 by AUDREY Jones- levothyroxine 75 mcg PO DAILY sulfamethoxazole-trimethoprim 800-160 mg (Bactrim DS) 1 tab PO BID 5 days HPI Comments Details: Janna is a very pleasant 59-year-old female patient of Dr. Quiñones. She has a past medical history of back pain, retinal tear of the left eye, recurrent nephrolithiasis, and hypothyroidism. She is being followed up on today via telehealth to discuss most recent CT urogram results. Of note, patient with a history of nephrolithiasis as well as low-grade superficial bladder cancer and has underwent ureteroscopy as well as TURBTs with Dr. Edwards. She is awaiting approval of insurance company for 6 weeks induction of mitomycin C with cytarabine for given multifocal nature of disease. Recent CT results reviewed with the patient today. 11/12 prominent less than 11 mm lymph node in the retroperitoneum/periaortic and periiliac. No discrete mass in the urinary bl adder. 6 mm nonobstructing nephrolithiasis, right kidney. She has recently had cystoscopy with transurethral resection of bladder tumors on the posterior wall as well as the right sidewall. She reports to be recovering well. She currently denies any bothersome urinary issues or concerns. 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 Focal muscle bundle suggestive of but not definitive of muscularis propria. Urine cytology 11/12 Negative for high-grade urothelial carcinoma. She currently denies any bothersome urinary issues or concerns. All questions were answered. PREVIOUS OFFICE NOTE: She seen for the following urologic conditions - nephrolithiasis - low-grade superficial bladder cancer Doing well postprocedure Question of UTI Will treat for 3 day Recommend 6 week induction mitomycin-C with cytarabine given multifocal nature of disease Would follow-up with office cystoscopy and three-month Low-grade superficial bladder cancer Incidental finding at time of ureteroscopy Procedures - 09/10 TURBT multifocal superficial low-grade T1 - 11/11 repeat TURBT with 2 solitary lesion seen under NBI Nephrolithiasis Prior stone procedures in 1992 and 2011 Underwent ESWL with ineffectual breaking up of stone Has had recurrent blood with a single UTI Intervention - 09/10 right ureteroscopy with ESWL Stone composition - 09/10 - calcium oxalate monohydrate 50%, dihydrate 25%, carbonate apatite 25% PFSH Medical History Back pain Retinal tear of left eye Recurrent nephrolithiasis Hypothyroid Colon polyp History of kidney stones Hematuria Surgical History Hx of cystoscopy History of knee surgery History of eye surgery History of back surgery History of lithotripsy Social History Are you a primary special needs child caregiver to a significant other at home: No Do you presently have visiting nurse or other home services: No Patient Tobacco Use Status: Never used Tobacco Review of Systems Const All systems reviewed & are unremarkable except as noted in HPI and below Physical Exam Const General: cooperative Orientation/consciousness: patient oriented x3 Resp Effort & Inspection: able to speak in complete sentences Neuro General: patient oriented x3 Psych Speech and movement: Clear speech present Attitude: cooperative Thought process: Normal thought process present Insight: Fair insight present (Psych) Judgement: Fair judgement present (Psych) Telehealth Telehealth Telehealth Platform: Telephone Location of provider rendering services: practice address Location of patient: address on file Patient Identification confirmed using: Name, : Yes Telehealth method: voice only Patient verbally consented to treatment: Yes Patient verbally consented to billing insurance company: Yes Patient informed of any privacy concerns related to visit: Yes Minutes spent on Phone/Video with Pt.: 15 Results Reviewed Results Reviewed: Date of Service: 11/15/24 Procedure(s): CT abdomen pelvis wo/w IV con FINDINGS: LIVER, GALLBLADDER, AND BILIARY TREE: Liver measures 16 cm. There is a 3 mm hypodensity in the periphery of the right hepatic lobe too small to be fully characterized. Portal veins, hepatic veins and intrahepatic portion of the IVC are patent. No intrahepatic biliary ductal dilatation. No pericholecystic fluid collection or gallbladder wall thickening. Common bile duct measures 3 mm. PANCREAS: No focal mass. No peripancreatic fluid collection. No main pancreatic ductal dilatation. SPLEEN: 9 cm. No focal lesion. Subcentimeter cyst. ADRENAL GLANDS: No nodular lesions. KIDNEYS AND URETERS: Right kidney: There is a 6 mm calculus in the lower pole pelvicalyceal system. No hydronephrosis. No gross renal mass. Normal enhancement of the renal parenchyma and excretion of the IV contrast into the collecting system. Left kidney: No hydronephrosis. No nephrolithiasis. No renal mass. Normal enhancement pattern and normal urinary excretion into the collecting system. BLADDER: Fluid-filled with jets bilaterally no gross wall thickening. GASTROINTESTINAL TRACT: Diverticula in the left hemicolon. Abundant stool. No intestinal obstruction pattern. No pneumatosis intestinalis. Appendix is normal and retrocecal. No ascites. No pneumoperitoneum. No peripheral enhancing fluid collection in the peritoneal cavity. ABDOMINAL WALL: No gross umbilical hernia. LYMPH NODES: There are multiple prominent less than 11 mm lymph nodes in the retroperitoneum/periaortic and periiliac. VASCULAR: No aneurysm or dissection, abdominal aorta. PELVIC VISCERA: Probable uterine fibroid. No lesions in the adnexa. OSSEOUS STRUCTURES: Multilevel thoracolumbar spondylosis. Grade 1 anterolisthesis L4-5 on a degenerative basis resulting in central spinal canal and bilateral neuroforamina stenosis. There is facet joint hypertrophy at L5-S1 and decreased intervertebral disc height with vacuum phenomenon at L5-S1. There is a grade 1 retrolisthesis L5-S1. No lytic or blastic lesions. IMPRESSION: Prominent less than 11 mm lymph nodes in the retroperitoneum/periaortic and periiliac. No discrete mass in the urinary bladder. 6 mm nonobstructing nephrolithiasis, right kidney. Diverticular disease. Probable uterine fibroid. Lumbar spondylosis resulting in grade 1 anterolisthesis L4-5 and central spinal canal and bilateral neuroforamina stenosis. Grade 1 retrolisthesis L5-S1. Probable subcentimeter cyst, right hepatic lobe. Assessment & Plan Assessment & Plan (1) Bladder cancer: Comment: Multifocal low-grade T1 disease Code(s): C67.9 - Malignant neoplasm of bladder, unspecified Category: Medical (2) Recurrent nephrolithiasis: Code(s): N20.0 - Calculus of kidney Category: Medical Plan Recent CT results reviewed with the patient today; as noted above. All questions were answered. She currently denies any bothersome urinary issues. Message sent to nursing to further assess prior authorization for bladder instillation. Keep scheduled follow-up with Dr. Edwards as planned Discussed, educated, and stressed the importance of calling office with any issues, concerns, and or questions. Patient Instructions: The patient had an opportunity to ask questions regarding the treatment plan. All questions were answered. Physical exam, labs, and imaging were discussed and reviewed in detail. As well as risks, benefits, and discussion of treatment choices. No major barriers to understanding were identified. The patient expressed understanding and agreement with the above treatment plan. The patient was made aware they should contact our office by phone for worsening of their current condition, the appearance of new symptoms, or with any questions or concerns. Compliance is encouraged with any medications and follow up testing that is ordered. It is a privilege to be allowed the opportunity to participate in? your urological care.? Again, if you have any questions or concerns If you have any questions or concerns please do not hesitate to contact me. The office is [phone]. This note is constructed using voice recognition software. While every effort has been made to ensure accuracy celebrity chef entrepreneur media personality errors may have been included. Yours sincerely, ANSON Jones Coding Level of Care Code Tele Est Pt Level 3 (50781) Diagnoses Bladder cancer C67.9 Recurrent nephrolithiasis N20.0
--- OUTSIDE RECORDS SUMMARY | 2024-11-26 18:27 | XMS_ITS | Clinical Summary ---
Author Organization [facility] Address [address] [place] [address] Care Team Providers Care Extrusion Die Repairer Name Role Phone Sofía Sandoval MD Primary Care Provider [phone] Sofía Sandoval MD Unavailable Immunizations Name Administration Dates Next Due Tdap [...] this topic Zoster (Zostavax) Discontinued Care Teams Extrusion Die Repairer Relationship Specialty Start Date End Date Sofía Sandoval MD [address] [place] [address] PCP - General 04/24/23 Sofía Sandoval MD [address] [place] [id number] PCP - Backup PCP Family Medicine 10/18/23
== END 2024-11-27 08:19 | disposition home or self-care (01) ==
LOC: HO.HUSH 15:12
PROVIDERS: PCP Internal Medicine; Visit Provider Nurse Practitioner Family
DX: C67.9 Malignant neoplasm of bladder, unspecified (principal); N20.0 Calculus of kidney
CPT/HCPCS: 98013

== ENCOUNTER → 2024-11-26 15:12 | Outpatient (BNVA) | payer MEDICAID, SELFPAY | PROVIDERS: PCP Internal Medicine; Visit Provider Nurse Practitioner Family ==

== ENCOUNTER 2025-03-07 14:08 | Outpatient (AMB) | payer MEDICAID, SELFPAY ==
--- OUTSIDE RECORDS SUMMARY | 2025-03-07 14:11 | XMS_ITS | Clinical Summary ---
Author Organization [facility] Address [address] [place] [address] Care Team Providers Care Application Support Manager Name Role Phone Sofía Sandoval MD Primary Care Provider [phone] Sofía Sandoval MD Unavailable Immunizations Immunization Administration Dates Next Due Tdap 11/21/2007 Social [...] ( - 2023-2 5 season) 2024 Influenza (Season Ended) 2025 RSV (1 - 1-dose 75+ series) 02/21/2039 [...] this topic Zoster (Zostavax) Discontinued Care Teams Application Support Manager Relationship Specialty Start Date End Date Sofía Sandoval MD [address] [place] [address] PCP - General 04/24/23 Sofía Sandoval MD [address] [place] [address] PCP - Backup PCP Family Medicine 10/18/23
--- NOTE | 2025-03-07 14:14 | A.OFFVIS_ITS ---
Intake Visit Reasons: Cysto Intake Note: Patient is present for Cystoscopy Urology Medication:NONE Antibiotic Allergy:NONE Blood Thinner:NONE Lot:[id number] Exp:01/24/27 Special Population Paraprofessional Required: No Allergies No Known Allergies Allergy (Verified 03/07/25 14:16) HPI Comments Details: Janna is a pleasant female. She is a patient of Dr. Quiñones. She is seen for the following urologic conditions - nephrolithiasis - low-grade superficial bladder cancer Cysto clear 4 month follow-up repeat Low-grade superficial bladder cancer - TURBT 11/11 multifocal low-grade Incidental finding at time of ureteroscopy Procedures - 09/10 TURBT multifocal superficial low-grade T1 - 11/12 repeat TURBT with 2 solitary lesion seen under NBI Underwent induction with mitomycin-C and cytarabine Imaging - CT urogram normal - scarred stone right side Cytology 11/12 NAD Nephrolithiasis Prior stone procedures in 1992 and 2011 Underwent ESWL with ineffectual breaking up of stone Has had recurrent blood with a single UTI Intervention - 09/10 right ureteroscopy with ESWL Stone composition - 09/10 - calcium oxalate monohydrate 50%, dihydrate 25%, carbonate apatite 25% PFSH Medical History Back pain Retinal tear of left eye Recurrent nephrolithiasis Hypothyroid Colon polyp History of kidney stones Hematuria Surgical History Hx of cystoscopy History of knee surgery History of eye surgery History of back surgery History of lithotripsy Social History Are you a primary career services representative to a significant other at home: No Do you presently have visiting nurse or other home services: No Patient Tobacco Use Status: Never used Tobacco Review of Systems Const Denies chills and Denies fever(s) Card Reports no additional complaints and Denies syncope Resp Denies cough GI Denies abdominal pain and Denies heartburn Reports as per HPI and Denies change in libido Neuro Denies syncope Psych Denies change in libido Endo Denies change in libido Physical Exam Const General: cooperative, healthy appearing, comfortable and no acute distress Orientation/consciousness: patient oriented x3 HEENT Face and sinus: Yes normal facial exam Mouth: moist mucous membranes Neck Neck: Yes normal visual inspection, Yes full ROM and Yes trachea midline Chest Chest palpation & inspection: normal inspection of the chest Resp Effort & Inspection: normal respiratory effort, able to speak in complete sentences and no respiratory distress GI Inspection: Yes normal to inspection Back/Spine/Pelvis Cervical Spine: normal cervical lordosis Thoracic/Lumbar Spine: thoracic and lumbar spine normal to inspection Skin General skin exam: no rashes or lesions noted Neuro General: patient oriented x3, gait normal, tone normal and moves all extremities Extrem General: Yes normal to inspection and Yes capillary refill normal Office Procedures Cystoscopy Consent Discussed risk and benefit or proposed procedure with the patient. Information consent for procedure given to the patient. Discussed technical aspects, risks, benefits and alternatives in full. Addressed all of the patient's questions and concerns regarding the procedure. The patient demonstrated knowledge and understanding. They wish to proceed with this procedure. Preparation The patient was prepped in the usual manner. A music cataloguer was present and in the room. Genitalia was prepped with betadine solution in a sterile manner. Lidocaine Jelly 2% was placed into the urethra and 16Fr flexible Olympus cystoscope was inserted into the meatus after adequate lubrication. Procedure Meatus normal Urethra normal Bladder examination with retroflexion of cystoscope Bladder Orifices normal shape and position Trigone normal Bladder Capacity Normal Trabeculations grade 1 Cellule Formation None Diverticulum Formation None Mucosal Erythema mild injection Bladder Tumor None scar site visible [id number] DISPOSABLE SCOPE URO-G FLEXIBLE SCOPE Procedure code (CPT) selection complete Office Meds lidocaine HCl 2 % mucosal jelly in applicator Performing Provider: John Edwards MD Performing Location: [facility] Administered by: Alivia Hauser RN on 03/07/25 14:39 Dose Route Admin Location Dispensed Lot Number Expiration Date NDC Jewel Setter 10 mL intra-urethral 10 mL nitrofurantoin monohydrate/macrocrystals 100 mg capsule Performing Provider: John Edwards MD Performing Location: [facility] [facility] Administered by: Alivia Hauser RN on 03/07/25 14:39 Dose Route Admin Location Dispensed Lot Number Expiration Date ND Jewel Setter 100 mg PO 1 cap Results AMB Urinalysis, Automated UA Leukoctes 0 Jeffrey/uL Last Edit by JES Hawk on 03/07/25 14:36 UA Nitrite Negative Last Edit by JES Hawk on 03/07/25 14:36 UA Urobilinogen 0.2 mg/dL Last Edit by JES Hawk on 03/07/25 14:3 6 UA Protein 0 mg/dL Last Edit by JES Hawk on 03/07/25 14:36 UA pH 6.0 Last Edit by Stacia Murphy CCM on 03/07/25 14:36 UA Blood 80 Terrance/uL Last Edit by Stacia Murphy [facility] on 03/07/25 14:36 UA Specific Linden 1.015 Last Edit by Stacia Murphy CCM on 03/07/25 14: 36 UA Ketone Negative Last Edit by JES Hawk on 03/07/25 14:36 UA Bilirubin 0 mg/dL [facility] on 03/07/25 14:36 UA Glucose 0 mg/dL Last Edit by Stacia [facility] on 03/07/25 14:36 Results Reviewed Results Reviewed: Laboratory Last Values Urine pH (Auto) 6.0 03/07/25 14:35 Specific Linden (Auto) 1.015 03/07/25 14:35 Urine Protein (Auto) 0 mg/dL 03/07/25 14:35 Glucose (UA)(Auto) 0 mg/dL 03/07/25 14:35 Urine Ketones (Auto) Negative 03/07/25 14:35 Urine Blood (Auto) 80 Terrance/uL 03/07/25 14:35 Urine Nitrite (Auto) Negative 03/07/25 14:35 Urine Bilirubin (Auto) 0 mg/dL 03/07/25 14:35 Urine Urobilinogen (Auto) 0.2 mg/dL 03/07/25 14:35 Leukocyte Esterase (Auto) 0 Jeffrey/uL 03/07/25 14:35 Assessment & Plan Assessment & Plan (1) Bladder cancer: Comment: Multifocal low-grade T1 disease Code(s): C67.9 - Malignant neoplasm of bladder, unspecified Category: Medical (2) Recurrent nephrolithiasis: Code(s): N20.0 - Calculus of kidney Category: Medical Plan Bladder surveilled Orders: Orders AMB Cystoscopy Today C67.9 - Malignant neoplasm of bladder, unspecified AMB Urinalysis Automated Today Z13.9 - Encounter for screening, unspecified Urine Cytology Today C67.9 - Malignant neoplasm of bladder, unspecified Patient Instructions: This note is constructed using voice recognition software. While every effort has been made to ensure accuracy senior investment manager errors may have been included. Imaging studies, laboratory and physical exam results were discussed and reviewed in detail. No major barriers to patient understanding were identified. An opportunity to ask questions regarding the treatment plan was provided. All questions were answered. The patient expressed understanding and agreement with the above treatment plan. The patient is aware they should contact our office by phone for worsening of their current condition or the appearance of new urologic symptoms. Compliance is encouraged with any medications and followup testing that is ordered. It is a privilege to participate in the urologic care of your patient. If you have any questions or concerns regarding treatment for the above conditions, or other urologic issues, please do not hesitate to contact me. The office telephone contact is [phone]. Sincerely, Dr John Edwards MD, [facility] - Urology Compassionate Specialist Care for the Genitourinary System Coding Level of Care Code Procedure Only Diagnoses Bladder cancer C67.9 Recurrent nephrolithiasis N20.0 CPT Codes Cystoscopy - CPT: [id number] ([id number])
== END 2025-03-07 15:04 | disposition home or self-care (01) ==
LOC: HO.HUSH 14:09
PROVIDERS: PCP Internal Medicine; Visit Provider Urology
DX: C67.9 Malignant neoplasm of bladder, unspecified (principal); N20.0 Calculus of kidney; Z13.9 Encounter for screening, unspecified
CPT/HCPCS: 52000

== ENCOUNTER 2025-03-07 14:08 | Outpatient (REF) | payer MEDICAID, SELFPAY ==
[2025-03-07 16:08] LABS: Urine Cytology See Pathology rpt
== END 2025-03-07 14:09 | disposition home or self-care (01) ==
LOC: HO.LAB 14:08
PROVIDERS: PCP Internal Medicine; Visit Provider Urology
DX: C67.9 Malignant neoplasm of bladder, unspecified (principal); N20.0 Calculus of kidney
CPT/HCPCS: 52000; 81003; 88112

== ENCOUNTER 2025-06-06 06:55 | Outpatient (REF) | payer MEDICAID, SELFPAY ==
--- OUTSIDE RECORDS SUMMARY | 2025-06-06 06:58 | XMS_ITS | Encounter Summary ---
Author Organization [facility] Address [address] [place] [address] Phone Care Team Providers Care Court Monitor Name Role Phone Rupal Quiñones MD Primary Care Provider [phone] Rupal Quiñones MD Unavailable [phone] Vero Hamilton MD Unavailable [phone] Amanda Damon MD Unavailable Rupal Quiñones MD Unavailable [phone] Encounter Details Date Type Department Care Team (Late st Contact Info) Description 11/05/2021 Procedure Pass [facility], [address] [address] Social History Tobacco Use Types Packs/Day Years Used Date Smoking Tobacco: Never Smokeless Tobacco: Never Alcohol Use Standard Drinks/Week Comments Not Currently 0 (1 standard drink = 0.6 oz pur e alcohol) infrequent Child or Family Care Answer Date Record ed Do you have problems with on e of the following making it difficult for you to work, study, or receive health care? No 11/04/2021 Education Answer Date Recorded Are you interested in help w ith more adult education (for example, completing high school, GED, job training, learning the [place] language, technical skills, or developing parenting skills)? No 11/04/2021 Food Answer Date Recorded Within the past 6 months we worried whether our food would run out before we got money to buy more. Never True 11/04/2021 Within the past 6 months the food we bought just didn't last and we didn't have enough money to get more. Never True Residential Stability Answer Date Recor ded What is your housing situation today? I have walker thomas 11/04/2021 How many times have you move d in the past 12 months? Zero (I did not move) 11/04/2021 Paying for Meds Answer Date Recorded Do you have trouble paying for medicines? No 11/04/2021 Paying Utility Bills Answer Date Record ed Do you have trouble paying your heating or elect ricity bill? No 11/04/2021 Transportation Answer Date Recorded Has the lack of transportati on kept you from medical appointments or from getting medications? No 11/04/2021 Unemployment Answer Date Recorded Are you currently unemployed or working on a part-time or temporary basis, and looking for work? No 11/04/2021 Comments No Sex and Gender Information Value Date Recorded Sex Assigned at Female 11/22/2019 5:26 PM EST Legal Sex Female 9:43 PM EDT Gender Identity Female 11/22/2019 5:26 PM EST Sexual Orientation Not on file documented as of this encounter Plan of Treatment Not on file documented as of this encounter Visit Diagnoses Not on filedocumented in this encounter Additional Health Concerns Assessment Noted Time PHQ-2 Depression Total Score: 0 11/04/19 22 11:23 AM EST documented as of this encounter Care Teams Court Monitor Relationship Specialty Start Date End Date Rupal Quiñones MD [address] [place] [id number] PCP - General 07/04/17 Rupal Quiñones MD [address] [place] [address] [email or web address] Historical LMR Provider 07/04/17 Vero Hamilton MD [address] [place] [id number] Historical LMR Provider 07/04/17 Amanda Damon MD [address] [place] [address] [email or web address] Historical LMR Provider 07/04/17 Rupal Quiñones MD [address] [place] [address], [address] [place] [address] [email or web address] Insurance Assigned Provider 03/24/18 documented as of this encounter Additional Source Comments The information contained in this document represents components of the legal health record. It is not the complete legal health record.[facility]
--- OUTSIDE RECORDS SUMMARY | 2025-06-06 06:58 | XMS_ITS | Encounter Summary ---
Author Organization [facility] Address [address] [place] [address] Phone Care Team Providers Care Office Runner Name Role Phone Rupal Quiñones MD Primary Care Provider [phone] Rupal Quiñones MD Unavailable [phone] Vero Hamilton MD Unavailable [phone] Amanda Damon MD Unavailable Encounter Details Date Type Department Care Team (Late st Contact Info) Description 06/06/2024 Procedure Pass [facility], [facility] - [address] [address] Social History Tobacco Use Types Packs/Day Years [...] work, study, or receive health care? No 06/05/2024 Education Answer Date Recorded Are you interested in help w ith more adult education (for example, completing high school, GED, job training, learning the [place] language, technical skills, or developing parenting skills)? No 06/05/2024 Are you concerned about learning? Not on file 06/05/2024 No 06/05/2024 Yes 06/05/2024 Food Answer Date Recorded Within the past 6 months we worried whether our food would run out before we got money to buy more. Never True 06/05/2024 Within the past 6 months the food we bought just didn't last and we didn't have enough money to get more. Never True Residential Stability Answer Date Recor ded What is your housing situation today? I have walker thomas 06/05/2024 How many times have you move d in the past 12 months? Zero (I did not move) 06/05/2024 Paying for Meds Answer Date Recorded Do you have trouble paying for medicines? No 06/05/2024 Paying Utility Bills Answer Date Record ed Do you have trouble paying your heating or elect ricity bill? No 06/05/2024 Transportation Answer Date Recorded Has the lack of transportati on kept you from medical appointments or from getting medications? No 06/05/2024 Unemployment Answer Date Recorded Are you currently unemployed or working on a part-time or temporary basis, and looking for work? No 11/04/2021 Digital Access Answer Date Recorded No 06/05/2024 Yes 06/05/2024 Do you have reliable internet access at home? Ye s 06/05/2024 Do you have a device (e.g., phone, tablet, computer) with a working camera? Yes 06/05/2024 SNAP & WIC Answer Date Recorded Do you receive benefits from SNAP (the Supplemental Nutrition Assistance Program) or the Food Stamp Program? No 06/05/2024 SNAP is a free program that can help you and your family get access to healthy foods, nutrition classes, utility discounts, and more. Would you be interested in learning more? No 06/05/2024 Can we help you enroll in SNAP? Not on file 06/05/2024 Benefits received from WIC? Not on file 05/19 WIC is a free program, interested in learning mo re? Not on file 06/05/2024 Can we help you enroll in WIC? Not on file 0 06/05/2024 Intimate Partner Violence Answer Date R ecorded Denied Basic Needs Not on file 06/06/2024 In the past 12 months have y ou been in a relationship with a person who hurts, threatens, or tries to control you? No 06/06/2024 Worried food would run out Not on file 06/06 In the past 12 months have y ou been in a relationship with a person who hurts, threatens, or tries to control you? No 06/06/2024 Comments No Sex and Gender Information Value [...] Noted Time PHQ-2 Depression Total Score: 0 06/06/20 24 6:06 AM EDT documented as of this encounter Care Teams Office Runner Relationship Specialty Start Date End Date Rupal Quiñones MD [address] [place] [phone] PCP - General 07/04/17 Rupal Quiñones MD [address] [place] [id number] Historical LMR Provider 07/04/17 Vero Hamilton MD [address] [address] Historical LMR Provider 07/04/17 Amanda Damon MD [address] [address] Historical LMR Provider 07/04/17 documented as of this encounter Additional Source Comments The information contained in this document represents components of the legal health record. It is not the complete legal health record.[facility]
--- OUTSIDE RECORDS SUMMARY | 2025-06-06 06:58 | XMS_ITS | Clinical Summary ---
Author Organization [facility] Address [address] [facility] [address] [place] [address] Phone Care Team Providers Care Pipe Fitter Welding Name Role Phone Rupal Quiñones MD Primary Care Provider [phone] Rupal Quiñones MD Unavailable [phone] Vero Hamilton MD Unavailable [phone] Amanda Damon MD Unavailable Allergies No known active allergies Medications levothyroxine (SYNTHROID, LEVOTHROID) 75 MCG tabletIndications: Acquired hypothyroidism take 1 tablet by mouth every day in the morning on an empty stomach 90 tablet 3 4 Active albuterol 90 mcg/actuation inhalerIndications :Acute bronchitis with wheezing Inhale 2 puffs into the lungs every 6 (six) hours as needed for wheezing or shortness of breath/dyspne a. 18 g 1 5 Active Active Problems Problem Noted Date Diagnosed Date Acute bronchitis with wheezing 01/30/2025 Assessment & Plan (01/30/2025 6:01 PM EDT): The patient exhibits significant wheezing, suggesting inflammation or potential reactive airway disease. - Physical examination revealed wheezing throughout the lungs, indicating a level of inflammation. - A prednisone taper will be initiated to reduce inflammation, with a prescription for 20 mg tablets to be taken once daily, tapering over 10-12 days. The patient is advised to take prednisone with food to minimize gastrointestinal upset and to take it early in the day to reduce the risk of insomnia. - Potential side effects, including increased appetite, irritability, and difficulty sleeping, were discussed. Acute cough 01/30/2025 Assessment & Plan (01/30/2025 6:03 PM EDT): The etiology of the cough is likely viral, given the absence of green nasal discharge and the presence of clear nasal discharge and yellow sputum. - The patient reports a dry cough that started on Monday, which worsens with deep breaths and leads to increased sinus drainage. - A chest x-ray will be ordered to rule out pneumonia. If the chest x-ray is negative, the condition will be managed as bronchitis. Fever 01/30/2025 Assessment & Plan (01/30/2025 6:01 PM EDT): The patient has experienced fluctuating fevers, with the highest recorded at 101.2 F at home and 99.7 F in the clinic. - Ibuprofen was taken last night, which broke the fever, resulting in sweating. - The patient is advised to monitor the fever and seek medical attention if it exceeds 101 F. - Fever management will continue with antipyretics as needed. Shortness of breath 01/30/2025 Assessment & Plan (01/30/2025 6:03 PM EDT): Previous LFT's without evidence of asthma or chronic obstructive or restrictive lung disease. Current mild dyspnea and chest tightness in the setting of acute illness, significant wheezing on exam. - An albuterol inhaler will be prescribed for use as needed to alleviate coughing episodes. - If SOB persists despite resolution of acute illness, a methylcholine challenge may be considered. Bladder cancer 09/09/2024 Overview (01/30/2025): Completed 6 weeks of chemo 01/24/25 Assessment & Plan (01/30/2025 6:12 PM EDT): Dx low-grade noninvasive papillary urethral carcinoma, s/p ureteroscopy as well as TURBTs of the posterior and right bladder sidewalls w/ urology (Dr Edwards). - Recently completed 6 weeks of intravesical chemotherapy. Systemic chemo was not required so not immunocompromised. - No current urinary issues reported. Sebaceous cyst 05/30/2019 Overview (05/30/2019): Scalp; multiple Assessment & Plan (05/30/2019 9:24 AM EDT): The patient has three likely sebaceous cysts on her scalp that are bothering her. I have offered to remove all three which she would like to have done. I explained the risks and benefits of lesion removal including but not limited to the risks of infection, bleeding, recurrence, bruising, failure to identify a malignancy, need for further surgery, scar and scalp numbness. The patient understands these risks and wishes to proceed. Nephrolithiasis 04/29/2019 Acquired hypothyroidism 04/29/2019 Resolved Problems Problem Noted Date Diagnosed Date Resolved Date Anemia 01/30/2025 01/30/2025 Immunizations Immunization Administration Dates Next Due COVID-19 (Pre-07/10) Moderna Vaccine, mRNA, PF 08/20/2021 COVID-19 (Pre-07/10) Pfizer Vaccine, mRNA, PF 12/30/2020,12/09/2020 INFLUENZA, SPLIT VIRUS, TRIVALENT PF 09/20/2016 INFLUENZA, SPLIT VIRUS, TRIV ALENT W/ PRESERVATIVE IM 10/29/2013 Influenza Quadrivalent MDCK Preservative Free IM 07/14/2022 Influenza Quadrivalent Prese rvative Free IM 08/02/2021,06/12/2020,07/23/2019,2017 Influenza Quadrivalent w/ Preservative IM 08/27/2021,08/25/2014 MMR 05/15/2019 Td (adult),2 Lf Tetanus Toxo id, PF, Adsorbed 06/06/2024 Tdap 10/29/2013,11/21/2007 Family History Medical History Relation Comments CV disease Father Diabetes mellitus Father Hypertension Father Hyperlipidemia Mother Hypertension Mother Breast cancer Neg Hx Relation Status Comments Father Mother Alive Social History Tobacco Use Types Packs/Day Years Used Date Smoking Tobacco: Never Smokeless Tobacco: Never Tobacco Cessation:Counseling Given: Not Answered Alcohol Use Standard Drinks/Week Comments Not Currently [...] high school, GED, job training, learning the [place] language, technical skills, or developing parenting skills)? [...] received from WIC? Not on file 05/19 [place] is a free program, interested in learning mo re? Not on file 06/05/2024 Can we help you enroll in [place]? Not on file 0 06/05/2024 Intimate Partner [...] PM EST Sexual Orientation Not on file Last Filed Vital Signs Vital Sign Reading Time Taken Comments Blood Pressure 106/70 01/30/2025 3:11 PM EDT Pulse 109 01/30/2025 3:11 PM EDT Temperature 37.5 C (99.5 F) 01/30/2025 3:11 PM EDT Respiratory Rate 18 11/22/2019 10:33 PM EST Oxygen Saturation 97% 01/30/2025 3:11 PM EDT Inhaled Oxygen Concentration - - Weight 68.9 kg (152 lb) 01/30/2025 3:11 PM EDT Height 165.1 cm (5' 5 ) 06/06/2024 1:24 PM EDT Body Mass Index 25.29 06/06/2024 1:24 PM EDT Plan of Treatment Health Maintenance Due Date Last Done Comments PNEUMOCOCCAL VACCINES (50+ years) (1 of 2 - PCV) 02/21/1983 ZOSTER VACCINES (1 of 2) 02/21/1983 COLOGUARD 02/21/2009 FIT TEST 02/21/2009 FOBT 02/21/2009 SIGMOIDOSCOPY 02/21/2009 VIRTUAL COLONOSCOPY 02/21/2009 INFLUENZA VACCINE (#1) 2025 , 07/14/2022, 08/27/2021, Additional history exists TSH LEVEL 05/28/2025 05/28/2024, 11/17, 11/05/2021, Additional history exists DEPRESSION SCREENING 06/06/2025 06/06/2024 HEPATITIS C SCREENING 06/06/2026 Postpo michael from 02/21/1982 (Patient Declines / Guardian Declines) HIV ONE-TIME SCREENING (18-65 YEARS) 06/06/2026 Postponed from 02/21/1982 (Patient Declines / Guardian Declines) PAP SMEAR 11/05/2026 11/05/2021 MAMMOGRAM 11/12/2026 11/12/2024, 11/17, 08/28/2018 SCREENING FOR DIABETES 05/28/2027 05/28/2024 LIPID PANEL 05/28/2029 05/28/2024, 11/17, 12/06/2022, Additional history exists Adult Td,Tdap Booster 06/06/2034 06/06/2024 , 10/29/2013, 11/21/2007 COLONOSCOPY 12/16/2034 12/16/2024, 11/12/2014 COLORECTAL CANCER SCREENING 12/16/2034 RSV VACCINE (1 - 1-dose 75+ series) 02/21/2039 COVID-19 VACCINE Completed 09/17/2024, , 07/07/2022, Additional history exists SMOKING STATUS SCREENING (Once After 26 Yrs) Completed 01/30/2025 HEPATITIS A VACCINES Aged Out No long er eligible based on patient's age to complete this topic HIB VACCINES Aged Out No longer eligi ble based on patient's age to complete this topic MENINGOCOCCAL VACCINES (ACWY) Aged Out No longer eligible based on patient's age to complete this topic MENINGOCOCCAL VACCINES (B) Aged Out N o longer eligible based on patient's age to complete this topic Medical Devices Not on file Procedures Procedure Name Priority Date/Time Associated Diagnosis Comments HM COLONOSCOPY FOR RESULT ENTRY ONLY Routine 12/16/2024 4:20 PM EDT BI MAMMOGRAM SCREENING WITH TOMOSYNTHESIS WITH CAD (BILATERAL) Routine 11/12/2024 7:54 AM EST Breast screening LIPID PANEL Routine 05/28/2024 8:44 AM EDT Pure hypercholesterolemia TSH WITH REFLEX Routine 05/28/2024 8:44 AM EDT Acquired hypothyroidism PAP TEST Routine 11/05/2021 12:00 AM EST from Last 3 Months or Most Recently Relevant to Health Maintenance Results * HM COLONOSCOPY FOR RESULT ENTRY ONLY (12/16/2024 4:20 PM EDT) us Historical Provider HEALTH MAINTENANCE Edited Result - Final * BI MAMMOGRAM SCREENING WITH TOMOSYNTHESIS WITH CAD (BILATERAL) (11/12/2024 7:54 AM EST) Anatomical Region Laterality Modality Breast Left, Breast Right, Breast Bilateral Bila teral Mammography 11/13/2024 9:14 AM EST Impressions 11/13/2024 9:15 AM EST No mammographic evidence of malignancy in either breast. Annual screening mammography is recommended. BI-RADS 1 NEGATIVE The patient will be notified of the results and recommendations. Narrative 11/13/2024 9:15 AM EST BI MAMMOGRAM SCREENING WITH TOMOSYNTHESIS WITH CAD (BILATERAL) Additional patient information: Screening. COMPARISON: Comparison is made with relevant prior imaging. Breast composition: There are scattered areas of fibroglandular density. FINDINGS: No abnormal masses, suspicious calcifications, or other significant findings are identified mammographically in either breast. There has been no significant interval change. Procedure Note Judi Bedolla MD - 11/13/2024 BI MAMMOGRAM SCREENING WITH TOMOSYNTHESIS WITH CAD (BILATERAL) Additional patient information: Screening. COMPARISON: Comparison is made with relevant prior imaging. Breast composition: There are scattered areas of fibroglandular density. FINDINGS: No abnormal masses, suspicious calcifications, or other significantfindings are identified mammographically in either breast. There has been no significant interval change. IMPRESSION: No mammographic evidence of malignancy in either breast. Annual screening mammography is recommended. BI-RADS 1 NEGATIVE The patient will be notified of the results and recommendations. us Rupal A Ishmael REEVES IMG MG EXAMS Final Result * TSH with reflex (05/28/2024 8:44 AM EDT) TSH 0.75 0.27 - 4.20 uIU/mL [facility] Blood 05/28/2024 8:44 AM EDT 05/28/2024 8:50 AM EDT us Rupal A Ishmael REEVES LAB BLOOD ORDERABLES Final Re sult Performing Organization Address [facility] Co de Phone Number [address] [address] * (ABNORMAL) Lipid panel (05/28/2024 8:44 AM EDT) HDL 47 mg/dL [facility] Comment: Interpretation <40 mg/dL: Low HDL cholesterol (major risk factor for CHD) Greater than or equal to 60 mg/dL: High HDL cholesterol ( negative risk factor for CHD) HDL - cholesterol is affected by a number of factors, e.g. smoking, excerise, hormones, sex and age. CHOLESTEROL 242(H) 0 - 240 mg/dL [facility] TRIGLYCERIDES 175(H) 30 - 160 mg/dL [facility] LDL 160(H) 50 - 129 mg/dL [facility] Comment: LDL levels in terms of risk for coronary heart disease: <100 mg/dL: Optimal 100-129 mg/dL: Near or above optimal 130-159 mg/dL: Borderline high 160-189 mg/dL: High >190 mg/dL: Very High CARDIAC RISK RATIO 5.1(H) 3.3 - 4.4 [facility] Blood 05/28/2024 8:44 AM EDT 05/28/2024 8:51 AM EDT us Rupal A Ishmael REEVES LAB BLOOD ORDERABLES Final Re sult Performing Organization Address [facility]/ZIP Co de Phone Number [address] [address] * Pap Smear (11/05/2021 12:00 AM EST) 11/05/2021 11/08/2021 9:0 5 AM EST Narrative SEE NARRATIVE - 11/12/2021 12:25 PM EST [address] [address] Manufacturing Systems Engineer: Sharmin Thompson MD [employer] Cytology Report FINAL DIAGNOSIS A. PAP SMEAR (SUREPATH) CE: SPECIMEN ADEQUACY: Satisfactory for evaluation; transformation zone present. INTERPRETATION: NEGATIVE FOR INTRAEPITHELIAL LESION OR MALIGNANCY. Electronically Signed Out By: NILE Jones(ASCP) The Pap test is a screening test primarily for squamous cancers and precursors and has associated false-negative and false-positive results. New technologies such as liquid-based preparations may decrease but will not eliminate all false-negative results. Regular sampling and follow-up of unexplained clinical signs and symptoms are recommended to minimize false negative results. PROCEDURES/ADDENDA HPV Testing (Requested) Ordered Date: 11/08/2021 A. PAP SMEAR (SUREPATH) CE: Human Papilloma Virus Test Negative for high-risk human papillomavirus types 16, 18, 45 and the Other high risk probe set (Includes 31, 33, 35, 39, 51, 52, 56, 58, 59, 66, 68) by [employer] Onclarity HR-HPV analysis. Clinical correlation is advised. This HPV test was performed at [facility], [address] [place] [address]. This test has been FDA approved for SurePath cervical cytology specimens. The accuracy and precision of this test for all other specimen sources has been verified in the Cytopathology Laboratory of the [facility] and has not been cleared or approved by the U.S. Food and Drug Administration. Clinical correlation is advised. CLINICAL HISTORY Date of Last Menstrual Period: Not Provided Menstrual History: Post Menopausal Other Clinical Conditions: Screening Pap SPECIMEN SOURCE A: PAP SMEAR (SUREPATH) CE Patient Name: EVA BROWN : 1965 (Age: 56) Sex: F Institution: [facility] Location: [facility] Date of Collection: 11/05/2021 Date of Reported: 11/12/2021 12:25 Results to: Rupal Quiñones MD, [facility], B us Rupal A Ishmael REEVES CYTOLOGY ORDERABLES Final Res ult SEE NARRATIVE from Last 3 Months or Most Recently Relevant to Health Maintenance Insurance [facility] [place] [address] [place] [address] [place] [address] [place] [address] ACO Member Subscriber Plan / Payer (Ef fective 2022-Present) Name:Eva Brown Relation to Subscriber:Self Name:Eva Brown Payer ID:[id number] (NAIC) Group ID:Not on file Type:Medicaid Address: [employer] CLAIMS [address] NATALIE [place] [address] ACO [facility] [facility] ACO Care Teams Pipe Fitter Welding Relationship Specialty Start Date End Date Rupal Quiñones MD [address] [place] [address], [address] [place] [address] [email or web address] PCP - General 07/04/17 Rupal Quiñones MD [address] [place] [address] [email or web address] Historical LMR Provider 07/04/17 Vero Hamilton MD [address] [address] Historical LMR Provider 07/04/17 Amanda Damon MD 22 [facility], [address] [address] Historical LMR Provider 07/04/17 Additional Source Comments The information contained in this document represents components of the legal health record. It is not the complete legal health record.[facility]
--- OUTSIDE RECORDS SUMMARY | 2025-06-06 06:58 | XMS_ITS | Clinical Summary ---
Author Organization [facility] Address [address] [place] [address] Care Team Providers Care Inside Sales Specialist Name Role Phone Sofía Sandoval MD Primary Care Provider [phone] Sofía Sandoval MD Unavailable [phone] Immunizations Immunization Administration Dates Next Due Tdap [...] COVID-19 Vaccine ( - 2023-2 5 season) 2025 Influenza (#1) 2025 RSV (1 - 1-dose 75+ series) 02/21/2039 HPV Vaccine (No Doses Required) Completed Hep A Aged Out No longer eligi [...] this topic Zoster (Zostavax) Discontinued Care Teams Inside Sales Specialist Relationship Specialty Start Date End Date Sofía Sandoval MD [address] [place] [address] PCP - General 04/24/23 Sofía Sandoval MD [address] [place] [address] PCP - Backup PCP Family Medicine 10/18/23
--- OUTSIDE RECORDS SUMMARY | 2025-06-06 06:58 | XMS_ITS | Encounter Summary ---
Author Organization [facility] Address [address] [facility] [address] [place] [address] Phone Care Team Providers Care Psychologist Chief Name Role Phone Rupal Quiñones MD Primary Care Provider Dalila Jacinto MD Unavailable Rupal Quiñones MD Unavailable [phone] Vero Hamilton MD Unavailable [phone] Amanda Damon MD Unavailable Osmin Flynn MD Unavailable David Rutledge MD Unavailable [phone] Jb Fields CNP Unavailable [phone] Rupal Quiñones MD Unavailable [phone] Encounter Details Date Type Department Care Team (Late st Contact Info) Description 07/20/2018 Ancillary Orders [facility] [address] [place] [address] [place] [address] Rupal Quiñones MD [address] [place] [address], [address] [place] [address] [email or web address] Breast screening Social History Tobacco Use Types Packs/Day Years Used Date Smoking Tobacco: Never Smokeless Tobacco: Never Alcohol Use Standard Drinks/Week Comments Yes 0 (1 standard drink = 0.6 oz pur e alcohol) infrequent Comments Unknown Sex and Gender Information Value Date Recorded Sex Assigned at Female 11/22/2019 5:26 PM EST Legal Sex Female 9:43 PM EDT Gender Identity Female 11/22/2019 5:26 PM EST Sexual Orientation Not on file documented as of this encounter Plan of Treatment Not on file documented as of this encounter Results * BI MAMMOGRAM SCREENING WITH TOMOSYNTHESIS WITH CAD (BILATERAL) (08/28/2018 9:06 AM EST) Anatomical Region Laterality Modality Breast Left, Breast Right, Breast Bilateral Bila teral Mammography 08/28/2018 1:10 PM EST Impressions 08/28/2018 1:11 PM EST Stable appearance relative to prior imaging. No findings suggestive of malignancy are seen. BI-RADS CATEGORY: 1 - Negative. DENSITY: There are scattered fibroglandular densities. POS - [id number] Narrative 08/28/2018 1:11 PM EST Full-field digital mammography is obtained with computer-aided detection. Comparison with prior imaging from 04/20/2017 is made with older imaging dating back as far as 10/18/2012 also reviewed. There is scattered fibroglandular density evident in the breasts. In addition to 2-D C view imaging, tomosynthesis images are obtained in two projections of each breast. No dominant soft tissue mass of concern, suspicious cluster of calcifications, significant interval skin changes, or architectural distortion is identified. Procedure Note Andrae Pulliam MD - 08/28/2018 Full-field digital mammography is obtained with computer-aided detection.Comparison with prior imaging from 04/20/2017 is made with older imagingdating back as far as 10/18/2012 also reviewed. There is scattered fibroglandular density evident in the breasts. Inaddition to 2-D C view imaging, tomosynthesis images are obtained in twoprojections of each breast. No dominant soft tissue mass of concern, suspicious cluster ofcalcifications, significant interval skin changes, or architecturaldistortion is identified. IMPRESSION: Stable appearance relative to prior imaging. No findings suggestive ofmalignancy are seen. BI-RADS CATEGORY: 1 - Negative. DENSITY: There are scattered fibroglandular densities. POS - [id number] us Rupal Quiñones MD IMG MG EXAMS Final Result documented in this encounter Visit Diagnoses Diagnosis Breast screening Breast screening, unspecified Breast screening Breast screening, unspecified documented in this encounter Care Teams Psychologist Chief Relationship Specialty Start Date End Date Rupal Quiñones MD [address] [place] [address] PCP - General 07/04/17 Dalila Jacinto MD [address] [place] [address] Historical LMR Provider 07/04/17 09/25/21 Rupal Quiñones MD [address] [place] [address] Historical LMR Provider 07/04/17 Vero Hamilton MD [address] [place] [address] Historical LMR Provider 07/04/17 Amanda Damon MD [address] [place] [address] Historical LMR Provider 07/04/17 Osmin Flynn MD [address] [place] [address] Historical LMR Provider 07/04/17 09/25/21 David Rutledge MD [address] [place] [address] Historical LMR Provider 07/04/17 Jb Fields CNP [address] [address] Historical LMR Provider 07/04/17 09/25/21 Rupal Quiñones MD [address] [place] [address] [email or web address] Insurance Assigned Provider 03/24/18 documented as of this encounter Additional Source Comments The information contained in this document represents components of the legal health record. It is not the complete legal health record.[facility]
--- OUTSIDE RECORDS SUMMARY | 2025-06-06 06:58 | XMS_ITS | Encounter Summary ---
Author Organization [facility] Address [address] [place] [address] Phone Care Team Providers Care Interpretive Program Coordinator Name Role Phone Rupal Quiñones MD Primary Care Provider [phone] Rupal Quiñones MD Unavailable [phone] Vero Hamilton MD Unavailable [phone] Amanda Damon MD Unavailable Encounter Details Date Type Department Care Team (Late st Contact Info) Description 06/06/2024 Procedure Pass [facility], [address] [address] Social History Tobacco Use Types Packs/Day Years [...] GED, job training, learning the [place] language, technical skills, or developing parenting skills)? [...] documented as of this encounter Care Teams Interpretive Program Coordinator Relationship Specialty Start Date End Date Rupal Quiñones MD [address] [place] [address] PCP - General 07/04/17 Rupal Quiñones MD [address] [place] [address] Historical LMR Provider 07/04/17 Vero Hamilton MD [address] [address] Historical LMR Provider 07/04/17 Amanda Damon MD [address] [address] Historical LMR Provider 07/04/17 documented as of this encounter Additional Source Comments The information contained in this document represents components of the legal health record. It is not the complete legal health record.[facility]
[2025-06-06 08:34] LABS: Appearance Urine Clear; Glucose Urine UA Negative (Negative); PH 5.5 (5.0-9.0); Specific Gravity - Urine 1.020 (1.005-1.025); UMIC TRIGGER UACC YES
== END 2025-06-06 06:56 | disposition home or self-care (01) ==
LOC: HO.LAB 06:55
PROVIDERS: PCP Internal Medicine; Visit Provider Nurse Practitioner Family
DX: N39.0 Urinary tract infection, site not specified (principal); C67.9 Malignant neoplasm of bladder, unspecified
CPT/HCPCS: 81001